=== PATIENT | female | born 1980 | race Caucasian/White ===

== ENCOUNTER → 2018-01-09 11:05 | Outpatient (CLI) | payer OTHER, SELFPAY ==
[2018-01-09 12:06] LABS: Rheumatoid Factor < 10.0 IU/mL (<15)
[2018-01-10 16:09] LABS: Albumin 3.8 g/dL (2.9-4.4); Albumin, Ur 6.7 % (.); Alpha-1-Globulin, Ur 6.5 % (.); Alpha-1-Globulins 0.2 g/dL (0.0-0.4); Alpha-2-Globulins 0.5 g/dL (0.4-1.0); Alpha-2-Globulins, Ur 16.2 % (.); Beta Globulin, Ur 39.8 % (.); Gamma Globulin 0.9 g/dL (0.4-1.8); Gamma Globulin, Ur 30.7 % (.); Immunoglobulin A 122 mg/dL (87-352); Immunoglobulin G 748 mg/dL (700-1600); Immunoglobulin M 245 mg/dL (26-217); M-Spike, Ur % Not Observed % (Not Observed); PROEL- TOTAL PROTEIN 6.3 g/dL (6.0-8.5); SJOGREN'S Anti-SS-A test < 0.2 AI (0.0-0.9); SJOGREN'S Anti-SS-B test < 0.2 AI (0.0-0.9); Total Protein, Ur 4.1 mg/dL (Not Estab.)
[2018-01-11 09:38] LABS: ANTINUCLEAR ANTIBODIES DIRECT Negative (Negative)
[2018-01-16 11:48] LABS: Creatinine, Urine 0.18 g/L (0.30-3.00)
== END ==
LOC: LAB 11:06
PROVIDERS: Family Provider Family Medicine; PCP Family Medicine; Visit Provider Psychiatry & Neurology Neurology
DX: G62.9 Polyneuropathy, unspecified (principal)
CPT/HCPCS: 36415; 82175; 82570; 82784; 83655; 83825; 84165; 84166; 86038; 86235; 86256; 86334; 86335; 86431

== ENCOUNTER → 2018-03-13 07:54 | Outpatient (CLI) | payer OTHER, SELFPAY ==
--- NOTE | 2018-03-13 10:38 | NEURO ---
NCS and/or EMG Patient Report Ordering Doctor: Shabnam Bay DATE OF SERVICE: 03/13/18 This is a bilateral lower extremity nerve conduction study and a right lower extremity EMG performed on this 37-year-old female who states that she has prediabetes with a hemoglobin A1c of 6.0, Duplin's disease, Raynaud's phenomenon, headaches and hypothyroidism, who is experienced burning and numbness in her feet for 1 year. Medications include steroids, Florinef, Synthroid, Seroquel, Topamax, Elavil and Wellbutrin. Bilateral lower extremity sensory and motor nerve conduction studies are performed. The sural sensory responses bilaterally are normal. The superficial peroneal sensory responses bilaterally are normal. The medial plantar responses bilaterally are preserved although amplitudes are somewhat diminished. Right common peroneal motor response is not obtainable, the left common peroneal motor response demonstrates reduced amplitude and prolonged latencies. The bilateral tibial motor conduction velocities are slowed. H reflex responses bilaterally are reduced. Right lower extremity needle electromyography was performed. Muscles evaluated included the tensor digitorum brevis, abductor hallucis, medial gastrocnemius, anterior tibialis, vastus lateralis, and vastus medialis. Peripheral muscles demonstrated large motor units, these abnormalities resolve more proximal muscles consistent with length dependent pattern. Impression: This is an abnormal nerve conduction study and EMG consistent with length dependent polyneuropathy.
== END ==
LOC: PSN 07:54
PROVIDERS: Family Provider Family Medicine; PCP Family Medicine; Visit Provider Psychiatry & Neurology Neurology
DX: R20.0 Anesthesia of skin (principal); R20.2 Paresthesia of skin; G62.9 Polyneuropathy, unspecified
CPT/HCPCS: 95886; 95913

== ENCOUNTER → 2018-04-10 07:27 | Outpatient (CLI) | payer OTHER, SELFPAY ==
--- NOTE | 2018-04-10 10:34 | NEURO ---
NCS and/or EMG Patient Report Ordering Doctor: Shabnam Bay DATE OF SERVICE: 04/10/18 The bilateral upper extremity nerve conduction study and a upper extremity EMG performed on this 37-year-old female with a history of neuropathy in her lower extremities by previous testing as well as a history of Luquillo's disease. Bilateral upper extremity sensory and motor nerve conduction studies are performed. There is reduction of the left ulnar motor amplitude across the elbow with prolongation of latencies but intact conduction velocity. On the right side the ulnar motor and sensory responses are normal. There is very mild prolongation of the median motor distal latencies with preservation of amplitude and conduction velocities. The median sensory, and radial sensory responses are normal. The median and ulnar F-wave latencies are bilaterally preserved. Right upper extremity needle electromyography is performed. Muscles evaluated included the first dorsal interosseous, abductor pollicis brevis, brachioradialis, biceps, triceps and deltoid muscles. The first dorsal interosseous muscle did show increase insertional activity, all other C8 muscles were normal. All other muscles demonstrated normal insertional activity with absence of pathologic spontaneous activity. Motor unit potential recruitment pattern and amplitude was normal in all other muscles tested. Impression: 1. Ulnar neuropathy across the left elbow, moderate. 2. 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
== END ==
LOC: PSN 07:27
PROVIDERS: Family Provider Family Medicine; PCP Family Medicine; Visit Provider Psychiatry & Neurology Neurology
DX: R20.0 Anesthesia of skin (principal); R20.2 Paresthesia of skin
CPT/HCPCS: 95886; 95913

== ENCOUNTER → 2018-05-30 13:28 | Outpatient (CLI) | payer OTHER, SELFPAY ==
[2018-05-30 16:55] LABS: Anion Gap 10 (5-15); BUN 12 mg/dL (7-18); Calcium,Total 8.5 mg/dL (8.5-10.1); Chloride 111 mmol/L (98-107); EST Glomerular Filtration Rate 67 mL/min (>60); Est Glom Filt Rate - Afr Amer 81 mL/min (>60); Glucose 86 mg/dL (74-106); Potassium 3.7 mmol/L (3.5-5.1); Sodium Level 142 mmol/L (136-145); T4 Free Direct 1.07 ng/dL (0.76-1.46); Thyroid Stim Hormone (TSH) 0.29 uIU/mL (0.358-3.74)
[2018-05-30 22:54] LABS: Vitamin B12 374 pg/mL (211-911)
== END ==
PROVIDERS: Family Provider Family Medicine; PCP Family Medicine; Visit Provider Family Medicine
DX: E23.0 Hypopituitarism (principal); E53.8 Deficiency of other specified B group vitamins
CPT/HCPCS: 36415; 80048; 82607; 83921; 84439; 84443

== ENCOUNTER → 2018-07-09 11:03 | Outpatient (CLI) | payer OTHER, SELFPAY ==
[2018-07-09 11:15] LABS: Mucous, Urine 0 SEEN /hpf (<or=2+); Red Blood Cells-Urine 0 SEEN /hpf (0-5); White Blood Cells 0 SEEN /hpf (0-5)
[2018-07-09 15:31] LABS: Absolute Lymphocyte Count 1.33 X10^3/ul (0.83-4.51); Absolute Neutrophil Count 1.6 X10^3/uL (2.0-7.7); Basophil# 0.04 X10^3/uL; Basophil% 1.1 % (0-1); Eosinophil# 0.01 X10^3/uL; Eosinophils% 0.3 % (0-5); Hematocrit 37.4 % (37-47); Hemoglobin 11.8 g/dl (12.0-15.0); Lymphocyte # 1.33 X10^3/ul (4.0); Lymphocyte % 35.4 % (19-41); Mean Corp Hgb Conc 31.6 g/gl (32-36); Mean Corpuscular Hgb 26.4 pg (27.0-32.0); Mean Corpuscular Volume 83.7 fL (81-99); Mean Platelet Vol. 10.1 fl (6.2-12.0); Monocyte# 0.77 X10^3/uL; Monocyte% 20.5 % (0-10); Neutrophil # 1.61 X10^3/uL (2.7-7.7); Neutrophil % 42.7 % (47-70); Platelet Count 372 K/mm3 (150-450); RBC Distribution Width CV 15.1 % (11.6-14.6); RBC Distribution Width SD 46.3 fl (35.1-43.9); Red Blood Count 4.47 M/mm3 (4.2-5.4); White Blood Count 3.8 K/mm3 (4.4-11.0)
[2018-07-09 15:39] LABS: ALB/GLOB Ratio 1.1 RATIO (0.9-2.4); AST(SGOT) 9 U/L (15-37); Alanine Aminotransfer ALT/SGPT 17 U/L (13-56); Albumin, Serum 3.4 g/dL (3.2-5.0); Alkaline Phosphatase 68 U/L (45-117); Anion Gap 12 (5-15); BUN 12 mg/dL (7-18); BUN/Creat Ratio 12.5 RATIO (10-20); Calcium,Total 8.1 mg/dL (8.5-10.1); Chloride 110 mmol/L (98-107); Color, Urine Yellow (Yellow); Creatinine, Serum 0.96 mg/dL (0.55-1.02); EST Glomerular Filtration Rate 70 mL/min (>60); Est Glom Filt Rate - Afr Amer 85 mL/min (>60); Glucose 98 mg/dL (74-106); Glucose, Dipstick Normal (Normal); Ketone-Dipstick Negative (Negative); Leukocyte Esterase-Dipstick Negative /ul (Negative); Nitrite-Dipstick Negative (Negative); Occult Blood-Urine Negative /ul (Negative); Potassium 3.9 mmol/L (3.5-5.1); Protein, Total 6.4 g/dL (6.4-8.2); Protein-Dipstick Negative (Negative); Sodium Level 142 mmol/L (136-145); Specific Gravity, Urine 1.015 (1.002-1.030); Urine Bilirubin Dipstick Negative (Negative); Urine Urobilinogen Normal (Normal)
[2018-07-09 15:48] LABS: POSITIVE COUNT NO; POSITIVE DIFFERENTIAL NO; POSITIVE MORPHOLOGY NO
[2018-07-09 15:50] LABS: Erythrocyte Sedimentation Rate 4 mm/hr (0-20)
[2018-07-09 15:56] LABS: Urine Clarity Clear (Clear)
[2018-07-09 16:00] LABS: Bacteria 1+ /hpf (None Seen); Squamous Epithelial Cells - UA 5-10 SEEN /hpf (5-10)
[2018-07-17 16:08] LABS: Complement C3 92 mg/dL (82-167); Cytoplasmic Ab (C-ANCA) <1:20 titer (Neg:<1:20); HEPATITIS B SURFACE AG Negative (Negative); Thyroid Peroxidase AB 116 IU/mL (0-34)
[2018-07-18 12:26] LABS: Anti-Thyroglobulin AB > 2250.0 IU/mL (0.0-0.9); CCP IgG Antibodies 5 units (0-19); Hep C Antibodies 0.1 s/co ratio (0.0-0.9); Hepatitis B Core AB IgM Negative (Negative); Thyroglobulin RIA 4.2 ng/mL (.)
== END ==
PROVIDERS: Family Provider Family Medicine; PCP Family Medicine
DX: R76.8 Other specified abnormal immunological findings in serum (principal)
CPT/HCPCS: 36415; 80053; 81001; 84432; 85025; 85652; 86160; 86200; 86256; 86376; 86705; 86800; 86803; 87340

== ENCOUNTER → 2018-08-29 14:32 | Outpatient (CLI) | payer OTHER, SELFPAY ==
[2018-08-29 16:10] LABS: Thyroid Stim Hormone (TSH) 0.16 uIU/mL (0.358-3.74)
== END ==
PROVIDERS: Family Provider Family Medicine; PCP Family Medicine
DX: E27.1 Primary adrenocortical insufficiency (principal)
CPT/HCPCS: 36415; 84443

== ENCOUNTER → 2019-01-03 14:44 | Outpatient (CLI) | payer OTHER, SELFPAY ==
[2018-11-26 10:58] VITALS: BMI 38.3
[2019-01-03 18:22] LABS: Anion Gap 8 (5-15); BUN 14 mg/dL (7-18); Calcium,Total 8.7 mg/dL (8.5-10.1); Chloride 111 mmol/L (98-107); EST Glomerular Filtration Rate 66 mL/min (>60); Est Glom Filt Rate - Afr Amer 80 mL/min (>60); Glucose 126 mg/dL (74-106); Potassium 4.1 mmol/L (3.5-5.1); Sodium Level 143 mmol/L (136-145); T4 Free Direct 0.89 ng/dL (0.76-1.46); Thyroid Stim Hormone (TSH) 2.54 uIU/mL (0.358-3.74)
== END ==
PROVIDERS: Family Provider Family Medicine; PCP Family Medicine
DX: E27.1 Primary adrenocortical insufficiency (principal); E03.8 Other specified hypothyroidism; E06.3 Autoimmune thyroiditis
CPT/HCPCS: 36415; 80048; 84439; 84443

== ENCOUNTER → 2019-03-05 09:30 | Outpatient (CLI) | payer OTHER, SELFPAY ==
[2018-11-26 10:58] VITALS: BMI 38.3
[2019-03-05 12:20] LABS: Absolute Lymphocyte Count 1.52 X10^3/ul (0.83-4.51); Basophil# 0.04 X10^3/uL; Basophil% 1.3 % (0-1); Eosinophil# 0.02 X10^3/uL; Eosinophils% 0.7 % (0-5); Hematocrit 40.6 % (37-47); Lymphocyte # 1.52 X10^3/ul (4.0); Lymphocyte % 50.8 % (19-41); Mean Corpuscular Hgb 27.9 pg (27.0-32.0); Mean Corpuscular Volume 87.1 fL (81-99); Mean Platelet Vol. 10.5 fl (6.2-12.0); Monocyte# 0.37 X10^3/uL; Monocyte% 12.4 % (0-10); Neutrophil # 1.04 X10^3/uL (2.7-7.7); Neutrophil % 34.8 % (47-70); Platelet Count 300 K/mm3 (150-450); RBC Distribution Width CV 14.6 % (11.6-14.6); RBC Distribution Width SD 46.5 fl (35.1-43.9); Red Blood Count 4.66 M/mm3 (4.2-5.4)
[2019-03-05 12:21] LABS: POSITIVE COUNT NO; POSITIVE DIFFERENTIAL NO; POSITIVE MORPHOLOGY NO
[2019-03-05 12:31] LABS: ALB/GLOB Ratio 1.2 RATIO (0.9-2.4); AST(SGOT) 15 U/L (15-37); Alanine Aminotransfer ALT/SGPT 16 U/L (13-56); Albumin, Serum 3.6 g/dL (3.2-5.0); Alkaline Phosphatase 54 U/L (45-117); Anion Gap 9 (5-15); BUN 8 mg/dL (7-18); Calcium,Total 8.6 mg/dL (8.5-10.1); Chloride 107 mmol/L (98-107); Creatinine, Serum 0.89 mg/dL (0.55-1.02); EST Glomerular Filtration Rate 76 mL/min (>60); Est Glom Filt Rate - Afr Amer 92 mL/min (>60); Globulin 2.9 g/dL (2.2-4.2); Glucose 86 mg/dL (74-106); Potassium 3.8 mmol/L (3.5-5.1); Protein, Total 6.5 g/dL (6.4-8.2); Sodium Level 142 mmol/L (136-145)
[2019-03-05 12:34] LABS: Hemoglobin A1c 5.3 % (4.2-6.3)
[2019-03-05 12:38] LABS: Vitamin B12 1018 pg/mL (211-911)
[2019-03-05 12:44] LABS: Valproic Acid (Depakene) Level 57 ug/mL (50-100)
== END ==
PROVIDERS: Family Provider Family Medicine; PCP Family Medicine; Visit Provider Family Medicine
DX: F31.9 Bipolar disorder, unspecified (principal); E53.8 Deficiency of other specified B group vitamins; E03.9 Hypothyroidism, unspecified; R73.01 Impaired fasting glucose; Z79.899 Other long term (current) drug therapy
CPT/HCPCS: 36415; 80053; 80164; 82607; 83036; 85025

== ENCOUNTER → 2019-05-15 11:01 | Outpatient (CLI) | payer OTHER, SELFPAY ==
[2018-11-26 10:58] VITALS: BMI 38.3
[2019-05-15 13:35] LABS: hCG Titer Quant., Serum 51761 mIU/mL (1-3)
== END ==
PROVIDERS: Family Provider Family Medicine; PCP Family Medicine; Visit Provider Family Medicine
DX: N91.2 Amenorrhea, unspecified (principal)
CPT/HCPCS: 36415; 84702

== ENCOUNTER → 2019-05-27 | Outpatient (CLI) | payer OTHER, SELFPAY ==
[2018-11-26 10:58] VITALS: BMI 38.3
[2019-05-27 18:15] LABS: Anion Gap 6 (5-15); BUN 9 mg/dL (7-18); BUN/Creat Ratio 11.6 RATIO (10-20); Calcium,Total 9.2 mg/dL (8.5-10.1); Chloride 105 mmol/L (98-107); Creatinine, Serum 0.78 mg/dL (0.55-1.02); EST Glomerular Filtration Rate 88 mL/min (>60); Est Glom Filt Rate - Afr Amer 107 mL/min (>60); Glucose 104 mg/dL (74-106); Potassium 4.5 mmol/L (3.5-5.1); Sodium Level 134 mmol/L (136-145); T4 Free Direct 1.01 ng/dL (0.76-1.46); Thyroid Stim Hormone (TSH) 7.54 uIU/mL (0.358-3.74)
== END | disposition home or self-care (01) ==
LOC: BFHLAB 14:38
PROVIDERS: PCP Family Medicine
DX: E27.1 Primary adrenocortical insufficiency (principal); E03.9 Hypothyroidism, unspecified
CPT/HCPCS: 36415; 80048; 84439; 84443

== ENCOUNTER 2019-12-23 19:31 | Inpatient (IN) | payer OTHER, SELFPAY ==
[2018-11-26 10:58] VITALS: BMI 38.3
--- NOTE | 2019-12-23 19:54 | PCM.HP.OB ---
- Problem List (1) Advanced maternal age (AMA) in Status: Acute (2) History of bipolar disorder Status: Acute (3) Encounter for induction of labor Status: Acute (4) Hypothyroidism Status: Chronic (5) Tobacco use affecting , antepartum Status: Acute (6) Tobacco use complicating Status: Acute (7) Asthma Status: Acute (8) Warm reactive antibody Status: Acute History Date of Admission: 03/29/14 Final SUNITHA: 12/30/19 Gestational age: 39 Weeks and 0 Days History of this : This is a 39 year-old, G [2], P [1001], at 39 weeks gestational age by first trimester ultrasound. complicated by hypothyroidism, ag's disease, tobacco use in , history of bipolar disorder, antibody screen positive for warm autoantibody (warm panagglutinin) and advanced maternal age. 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 Primary adrenal insufficiency E27.1 Raynauds disease I73.00 Tension headache G44.209 Vitamin D deficiency E55.9 pre diabetic Surgical History: Surgical History (Last Updated 11/26/18 @ 11:03 by Lyndsey Mooney) H/O rhinoplasty Z98.890 Hx laparoscopic cholecystectomy Z90.49 Allergies vortioxetine [From Brintellix] Allergy (Mild, Verified 11/26/18 10:58) Other nickel [Nickel] Adverse Reaction (Verified 11/26/18 10:58) Rash Penicillins Adverse Reaction (Verified 11/26/18 10:58) Abd cramps/diarrhea Home Medications: Home Medications albuterol sulfate 90 mcg/actuation aerosol inhaler 1 puff INHALATION Q6H PRN 11/26/18 bupropion HCl 150 mg tablet,12 hr sustained-release 150 mg PO DAILY 11/26/18 cholecalciferol (vitamin D3) 125 mcg (5,000 unit) capsule 5,000 unit PO DAILY 11/26/18 divalproex 500 mg tablet,extended release 24 hr 500 mg PO DAILY 11/26/18 fludrocortisone 0.1 mg tablet 0.1 mg PO DAILY 11/26/18 hydrocortisone 5 mg tablet 5 mg PO TID 11/26/18 levothyroxine 200 mcg tablet 200 mcg PO DAILY 11/26/18 pantoprazole 40 mg tablet,delayed release 40 mg PO DAILY 11/26/18 quetiapine 300 mg tablet 300 mg PO BID 11/26/18 topiramate 100 mg tablet 100 mg PO BID 11/26/18 vitamin [id number] B1 1,000 mcg-100 mg/mL injection solution ml IM 11/26/18 Smoking Status: Former smoker Alcohol: None Number of Fetus(es): 1 NST - FHR Rate Baby A Baseline: 125 Variability:: Moderate Accelerations:: 15 x 15 Decelerations:: None FHR Category:: Category I Uterine Activity:: Irregular History Past Pregnancies: Past Pregnancies Delivery Date Name GA/ Weeks Outcome Route Wt Sex Labor Length Anesthesia Delivery Location Provider FOB Labs: HIV negative RPR negative HCV negative Rubella Immune HbsAG negative O positive with warm autoantibody (warm panagglutinin) GBS negative GC/CT negative 1hr GCT abnormal, 3hr GTT normal with one elevated level Expected Delivery Method: Spontaneous Vaginal Review of Systems Constitutional: Denies: Chills, Fever, Weight Change Eyes: Denies: Blurred vision Cardiovascular: Denies: Chest Pain, Palpitations Respiratory: Denies: Cough, Shortness of breath at rest, Sputum production Gastrointestinal: Denies: Abdominal Pain, Nausea, Vomiting Genitourinary: Denies: Dysuria Skin: Denies: Rash, Wounds Neurological: Denies: Numbness, Tingling, Focal weakness Psychiatric: Denies: Anxiety, Depression, Homicidal Ideations, Suicidal Ideations Physical Exam General: Alert, Oriented x3, Cooperative HEENT: Atraumatic, Normocephalic Cardiovascular: Regular rate, Regular Rhythm, No murmurs Lungs: Clear to auscultation, Normal air movement, No rhonchi, No wheeze Abdomen: Bowel Sounds Present, Soft, Non Tender, Gravid Extremities:: No edema Neurological: Deep Tendon Reflexes 2+/4 and Symmetrical. 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 30ml NS instilled. Station: -3 Effacement (%): 50 Assessment/Plan All Active Problems (Last Updated 11/26/18 @ 11:03 by Lyndsey Mooney) Advanced maternal age (AMA) in (Acute) History of bipolar disorder (Acute) Encounter for induction of labor (Acute) Tobacco use affecting , antepartum (Acute) Tobacco use complicating (Acute) Asthma (Acute) Warm reactive antibody (Acute) Acute adrenal crisis (Acute) Dehydration (Acute) Hypotension (Acute) This is a 39 year-old, G [2], P [1001], at 39 weeks gestational age for Induction of labor Advanced Maternal Age Tobacco Use 1) Admit to L&D. Routine labs 2) IV 3) Eng for cervical ripening and will then start Pitocin per protocol 4) Called blood bank due to warm autoantiody (warm panagglutinin) If positive type and screen, will need to notify [facility] [employer] for cross match if needed. If hgb below 10, will order cross match. 5) collaborative physician, notified of patient status and admission. 6) Will need 100 mg hydrocortisone every 8h IV per eddy current inspector. Verified with this evening.
[2019-12-23] MEDS: 0.9% Normal Saline Single 100 ML IV.SOLN. IY (20:54)
[2019-12-23 21:00] VITALS: BMI 34.7
[2019-12-23] MEDS: Lactated Ringers 1,000 ML 50 ML IV (21:12)
[2019-12-23 21:22] LABS: Absolute Lymphocyte Count 2.35 X10^3/uL (0.83-4.51); Basophil# 0.04 X10^3/uL; Basophil% 0.4 % (0-1); Eosinophil# 0.01 X10^3/uL; Eosinophils% 0.1 % (0-5); Hematocrit 45.8 % (37-47); Hemoglobin 16.6 g/dL (12.0-15.0); Lymphocyte # 2.35 X10^3/ul (4.0); Lymphocyte % 25.2 % (19-41); Mean Corp Hgb Conc 36.2 g/dL (32-36); Mean Corpuscular Hgb 33.5 pg (27.0-32.0); Mean Corpuscular Volume 92.5 fL (81-99); Mean Platelet Vol. 10.3 fl (6.2-12.0); Monocyte# 0.87 X10^3/uL; Monocyte% 9.3 % (0-10); NRBC Flagged by Analyzer 0 % (0-5); Neutrophil # 6.03 X10^3/uL (2.7-7.7); Neutrophil % 64.6 % (47-70); Platelet Count 267 K/mm3 (150-450); RBC Distribution Width CV 12.8 % (11.6-14.6); RBC Distribution Width SD 42.7 fl (35.1-43.9); Red Blood Count 4.95 M/mm3 (4.2-5.4); White Blood Count 9.3 K/mm3 (4.4-11.0)
[2019-12-23] MEDS: Hydrocortisone Sod Succinate 100 MG/2 ML Vial IV (23:53)
[2019-12-24] VITALS (14 sets, daily range): BP systolic 93–109; BP diastolic 51–67; PULSE 93–110; RESP 14–22; TEMP 36.6–37.5; O2SAT 97–100
[2019-12-24] MEDS: Mag Hydrox/Al Hydrox/Simeth 30 ML UDC PO (00:17)
[2019-12-24] MEDS: Oxytocin 30 units/NS 500 ml 30 UNITS/500 ML IV.SOLN IV (01:17)
[2019-12-24] MEDS: fentaNYL 100 MCG/2 ML Ampul IV (02:12)
[2019-12-24] MEDS: Lactated Ringers 500 ML 999 ML IV ×2 (03:42→10:22)
[2019-12-24] MEDS: fentaNYL-bupivacaine (epidural) 100 ML BAG EPIDURAL ×2 (04:16→08:58)
[2019-12-24] MEDS: Hydrocortisone Sod Succinate 100 MG/2 ML Vial IV ×2 (07:44→15:35)
[2019-12-24] MEDS: Lactated Ringers 1,000 ML 200 ML IV ×2 (07:44→12:17)
[2019-12-24] MEDS: Amnioinfusion- 0.9% NS 1,000 ML IV.SOLN. INTRA-UTER (13:17)
[2019-12-24] MEDS: Sodium Citrate/Citric Acid 30 ML UDC PO (15:36)
--- NOTE | 2019-12-24 16:37 | OP.PCM_ITS ---
Delivery Classification: ABDELRAHMAN Final SUNITHA: 12/30/19 Gestational age: 39 Weeks and 1 Days folder taper operator: Shakir Moreau Type of Anesthesia:: Spinal Special Medications: none Implants Used: none Date of Procedure: 12/24/19 Pre-Operative Diagnosis: arrest of dilation and descent, persistent category 2 FHTs remote from delivery, intolerance of labor Post-Operative Diagnosis: same + dystocia caused by lower uterine segment fibroid Description of Procedure: The patient was taken to the operating room. She was prepped and draped in the dorsal supine position with a leftward tilt. A Pfannenstiel skin incision was made approximately 2 cm above the symphysis pubis and carried through to underlying layer fascia with the scalpel. The fascia was incised incised in the midline and extended laterally with the Rosario scissors. The fascia was dissected off the rectus muscles with blunt and sharp dissection. The rectus muscles were in the midline and the peritoneum was entered bluntly. The peritoneal incision was stretched and the bladder blade was placed. The lower uterine segment was not developed at all, and was still somewhat thick. There was a lower uterine segment grade that was palpated adjacent to the head behind the symphysis pubis. The uterine incision was made in a low transverse fashion with the scalpel and extended superiorly and inferiorly with blunt dissection. The amniotic membranes were ruptured bluntly and clear amniotic fluid returned. Some difficulty, I was able to place a hand down in the pelvis under the vertex and break the suction. Head was very asynclitic and ROP. the infant's head was brought to the incision in the flexed position and delivered without difficulty. The remainder of the was delivered with gentle traction and fundal pressure in the standard fashion. The mouth and nares were bulb suctioned. The cord was clamped and cut as the was stimulated. Cord clamping was not delayed because the infant had good tone but was not immediately vigorous. The infant was handed off to the waiting nursing staff. The placenta was delivered with fundal massage and gentle traction in the standard fashion. The uterus was exteriorized and cleared of all clots and debris. There is a cervical extension on the left side. This was oversewn with #1 Vicryl suture. The uterine incision was closed with #1 Vicryl in a running locked fashion. A second layer of the same suture was used in an imbricating fashion. Several [id number] sutures were needed in the midline in a sinus to obtain hemostasis. The incision was examined and was found to be hemostatic. The lower uterine segment fibroid was to the right of the incision at the lower apex of the incision. The uterus was placed back into the peritoneal cavity and hemostasis was again confirmed. Kerri was placed over the lower uterine segment. The front and back of the ligaments were examined to ensure there were no hematomas before the uterus was placed back in the peritoneal cavity. The rectus muscles were examined and any bleeding was Bovie cauterized. The parietal peritoneum and rectus muscles were closed en bloc with an 0 Vicryl running suture. The surgical teams outer gloves were then changed. The rectus fascia was examined and any bleeding was Bovie cauterized and the rectus fascia was closed with 0 PDS suture in a running standard fashion. The subcutaneous tissue was examining and any bleeding was Bovie cauterized. The subcutaneous tissue was reapproximated with 3-0 Vicryl suture. The skin was closed in a subcuticular fashion by the SOLAR FABRICATION TECHNICIAN with me present in the labor and delivery suite. I performed the remainder of the procedure with assistance. All sponge, lap, and needle counts were correct. The patient was taken to her room for recovery in a stable condition. I would not recommend a trial of labor, the fibroid will likely cause a dystocia again in the future. Amniotic Membrane Rupture Type: Artificial Amniotic Fluid Description: Clear Placenta Disposition: [facility] Specimen(s) sent to pathology: none Drain: Chambers to straight drain Fluids Replaced: 600 Cord Entanglement: Around neck x 1, loose Nuchal Cord Compression: Without compression Cord Vessel Description: 3 Vessels Esitmated Blood Loss (ml): 1000 Infant Gender: Male Delayed cord clamping: No Antibiotic Given: Clindamycin 600mg IV x1 and Gentamicin 1.5mg/kg IV x1
[2019-12-24] MEDS: Lactated Ringers 1,000 ML 100 ML IV (16:50)
[2019-12-24] MEDS: Oxytocin 30 units/NS 500 ml 30 UNITS/500 ML IV.SOLN 167 UNITS IV (16:55)
[2019-12-24] MEDS: Senna/Docusate Sodium 1 Tablet PO (21:38)
[2019-12-24] MEDS: QUEtiapine 100 MG Tablet 300 MG PO (21:38)
[2019-12-24] MEDS: Ketorolac 30 MG/ML Syringe IV (21:39)
[2019-12-25] VITALS (14 sets, daily range): BP systolic 94–109; BP diastolic 57–61; PULSE 97–113; RESP 14–18; TEMP 36.4–37.1; O2SAT 96–100
[2019-12-25] MEDS: Hydrocortisone Sod Succinate 100 MG/2 ML Vial IV (00:48)
[2019-12-25] MEDS: Ketorolac 30 MG/ML Syringe IV ×4 (03:56→22:12)
[2019-12-25] MEDS: Enoxaparin 40 MG/0.4 ML Syringe SC (03:57)
[2019-12-25] MEDS: 0.9% Saline Lock 10 ML Syringe IV ×4 (03:57→16:24)
[2019-12-25 04:11] LABS: Hematocrit 36.2 % (37-47); Hemoglobin 12.7 g/dL (12.0-15.0); Mean Corp Hgb Conc 35.1 g/dL (32-36); Mean Corpuscular Hgb 33.4 pg (27.0-32.0); Mean Corpuscular Volume 95.3 fL (81-99); Mean Platelet Vol. 10.3 fl (6.2-12.0); Platelet Count 222 K/mm3 (150-450); RBC Distribution Width CV 13.2 % (11.6-14.6); RBC Distribution Width SD 44.2 fl (35.1-43.9); White Blood Count 17.6 K/mm3 (4.4-11.0)
[2019-12-25] MEDS: Levothyroxine 100 MCG Tablet 200 MCG PO (06:28)
[2019-12-25] MEDS: Hydrocortisone Sod Succinate 100 MG/2 ML Vial 25 MG IV ×3 (08:13→22:12)
[2019-12-25] MEDS: Fludrocortisone Acetate 0.1 MG Tablet PO ×3 (08:15→18:26)
--- NOTE | 2019-12-25 08:36 | PN.OBGYN_ITS ---
Patient Problems: Active and Suspected Problems (Last Updated 11/26/18 @ 11:03 by Lyndsey Mooney) Advanced maternal age (AMA) in (Acute) History of bipolar disorder (Acute) Encounter for induction of labor (Acute) Tobacco use affecting , antepartum (Acute) Tobacco use complicating (Acute) Asthma (Acute) Warm reactive antibody (Acute) Subjective: Pain well controlled. Average lochia. Tolerating regular diet. - Physical Exam Vitals/I&O's: Vital Signs Temp Pulse Resp BP Pulse Ox 98.4 F 98 16 94/57 L 97 12/25/19 08:01 12/25/19 08:01 12/25/19 08:01 12/25/19 08:01 12/25/19 08:01 Oxygen Delivery Method Room Air Weight: 103.419 kg Body Mass Index (BMI) 34.7 Finger Stick Blood Glucose 71 Intake and Output for Last 24 Hours 12/23/19 12/24/19 12/25/19 23:59 23:59 23:59 Intake Total 6112.03 / 6112.03 808.33 / 808.33 Output Total 950 / 950 150 / 150 Balance 5162.03 / 5162.03 658.33 / 658.33 General: Alert Abdomen: Soft, Distended - moderately, softly, Tender - appropriately Extremities: Edema - 1+ Skin: Incision - bandage is clean, dry and intact Laboratory Results 12/25/19 04:05: WBC 17.6 H, RBC 3.80 L, Hgb 12.7, Hct 36.2 L, MCV 95.3, MCH 33.4 H, MCHC 35.1, RDW Std Deviation 44.2 H, RDW Coeff of Denita 13.2, Plt Count 222, MPV 10.3 Current Medications Acetaminophen (Tylenol) 1,000 mg PO Q8H PRN PRN Reason: Pain Score 1-3/10 Albuterol Sulfate (Ventolin Aerosols) 2.5 mg INHALATION Q4H PRN PRN Reason: ASTHMA Bisacodyl (Dulcolax) 10 mg RECTAL UD PRN PRN Reason: If no BM Diphenhydramine HCl (Benadryl) 25 mg PO Q6H PRN PRN PRN Reason: ITCHING Stop: 02/12/20 18:38 Enoxaparin Sodium (Lovenox) 40 mg SC DAILY [facility] Last Admin: 12/25/19 03:57 Dose: 40 mg Documented by: Fludrocortisone Acetate (Florinef) 0.1 mg PO DAILY@0800 [facility] Last Admin: 12/25/19 08:15 Dose: 0.1 mg Documented by: Hydrocortisone (Hytone) 1 applic TOPICAL TID PRN PRN; Protocol PRN Reason: Discomfort Hydrocortisone Sodium Succinate (Solu-Cortef) 25 mg IV Q8 [facility] Stop: 12/25/19 22:01 Last Admin: 12/25/19 08:13 Dose: 25 mg Documented by: Naloxone HCl 4 mg/ Dextrose 504 mls @ 0 mls/hr IV .Q0M PRN; Protocol PRN Reason: Respiratory depression Ketorolac Tromethamine (Toradol (Bkc)) 30 mg IV Q6H [facility] Stop: 12/26/19 16:01 Last Admin: 12/25/19 03:56 Dose: 30 mg Documented by: Lamotrigine (Lamictal) 300 mg PO DAILY [facility] Levothyroxine Sodium (Synthroid) 200 mcg PO DAILY@0600 [facility] Last Admin: 12/25/19 06:28 Dose: 200 mcg Documented by: Methylergonovine Maleate (Methergine) 0.2 mg IM X1 PRN PRN Reason: Uterine Atony Naloxone HCl (Narcan) 0.02 mg IV Q1M PRN PRN Reason: RR <10 and pt unresponsive Ondansetron HCl (Zofran) 4 mg IV Q4H PRN PRN PRN Reason: Nausea Oxycodone HCl (Oxyir) 5 - 10 mg PO Q4H PRN PRN PRN Reason: Pain Score 4-10/10 Prochlorperazine Edisylate (Compazine Iv) 10 mg IV Q6H PRN PRN PRN Reason: NAUSEA Quetiapine Fumarate (Seroquel) 300 mg PO BID [facility] Last Admin: 12/24/19 21:38 Dose: 300 mg Documented by: Senna/Docusate Sodium (Senokot-S, Susan-Colace) 0 tablet PO DAILY PRN PRN Reason: Constipation Last Admin: 12/24/19 21:38 Dose: 2 tablet Documented by: Simethicone (Mylicon) 80 mg PO PCHS PRN PRN Reason: Indigestion/stomach pain Sodium Chloride () 5 - 15 ml IV UD PRN PRN Reason: SALINE FLUSH Last Admin: 12/25/19 08:15 Dose: 10 ml Documented by: Medical Necessity - Tobacco Use Smoking Status: Current every day smoker Assessment/Plan All Active Problems (Last Updated 11/26/18 @ 11:03 by Lyndsey Mooney) Advanced maternal age (AMA) in (Acute) History of bipolar disorder (Acute) Encounter for induction of labor (Acute) Tobacco use affecting , antepartum (Acute) Tobacco use complicating (Acute) Asthma (Acute) Warm reactive antibody (Acute) Acute adrenal crisis (Acute) Dehydration (Acute) Hypotension (Acute) Postoperative day #1 status post primary section. Doing well. Routine care. is bottlefeeding and doing well.
[2019-12-25] MEDS: Senna/Docusate Sodium 1 Tablet PO (10:09)
[2019-12-25] MEDS: lamoTRIgine 100 MG Tablet 300 MG PO (10:09)
[2019-12-25] MEDS: Acetaminophen 500 MG Tablet 1000 MG PO (12:51)
[2019-12-25] MEDS: QUEtiapine 100 MG Tablet 300 MG PO (22:22)
[2019-12-26 01:00] VITALS: BP 106/60; PULSE 90; RESP 16; TEMP 36.6
[2019-12-26] MEDS: 0.9% Saline Lock 10 ML Syringe IV ×2 (04:00→10:14)
[2019-12-26] MEDS: Ketorolac 30 MG/ML Syringe IV ×2 (04:00→10:13)
[2019-12-26] MEDS: Levothyroxine 100 MCG Tablet 200 MCG PO (05:33)
[2019-12-26] MEDS: oxyCODONE 5 MG Tablet PO (05:38)
[2019-12-26] MEDS: Senna/Docusate Sodium 1 Tablet PO (08:13)
[2019-12-26] MEDS: Fludrocortisone Acetate 0.1 MG Tablet PO (08:15)
[2019-12-26 08:30] VITALS: BP 123/66; PULSE 95; RESP 16; TEMP 37; O2SAT 99
--- NOTE | 2019-12-26 09:31 | PN.OBGYN_ITS ---
Patient Problems: Active and Suspected Problems (Last Updated 11/26/18 @ 11:03 by Lyndsey Mooney) Advanced maternal age (AMA) in (Acute) History of bipolar disorder (Acute) Encounter for induction of labor (Acute) Tobacco use affecting , antepartum (Acute) Tobacco use complicating (Acute) Asthma (Acute) Warm reactive antibody (Acute) Subjective: Pain well controlled. Average lochia. Positive flatus but no bowel movement. Tolerating regular diet. - Physical Exam Vitals/I&O's: Vital Signs Temp Pulse Resp BP Pulse Ox 98.6 F 95 16 123/66 H 99 12/26/19 08:30 12/26/19 08:30 12/26/19 08:30 12/26/19 08:30 12/26/19 08:30 Oxygen Delivery Method Room Air Weight: 103.419 kg Body Mass Index (BMI) 34.7 Finger Stick Blood Glucose 71 Intake and Output for Last 24 Hours 12/24/19 12/25/19 12/26/19 23:59 23:59 23:59 Intake Total 6112.03 / 6112.03 808.33 / 808.33 Output Total 950 / 950 850 / 850 Balance 5162.03 / 5162.03 -41.67 / -41.67 General: Alert, Cooperative, No apparent distress Abdomen: Soft, Distended - Moderately, softly, Tender - Appropriately Skin: Incision - Bandage has small amount of sanguinous drainage in the middle portion. Has not expanded past the marked lines. Otherwise clean dry and intact. Current Medications Acetaminophen (Tylenol) 1,000 mg PO Q8H PRN PRN Reason: Pain Score 1-3/10 Last Admin: 12/25/19 12:51 Dose: 1,000 mg Documented by: Albuterol Sulfate (Ventolin Aerosols) 2.5 mg INHALATION Q4H PRN PRN Reason: ASTHMA Bisacodyl (Dulcolax) 10 mg RECTAL UD PRN PRN Reason: If no BM Enoxaparin Sodium (Lovenox) 40 mg SC DAILY [facility] Last Admin: 12/25/19 03:57 Dose: 40 mg Documented by: Fludrocortisone Acetate (Florinef) 0.1 mg PO TIDCM [facility] Last Admin: 12/26/19 08:15 Dose: 0.1 mg Documented by: Hydrocortisone (Hytone) 1 applic TOPICAL TID PRN PRN; Protocol PRN Reason: Discomfort Naloxone HCl 4 mg/ Dextrose 504 mls @ 0 mls/hr IV .Q0M PRN; Protocol PRN Reason: Respiratory depression Ketorolac Tromethamine (Toradol (Bkc)) 30 mg IV Q6H [facility] Stop: 12/26/19 16:01 Last Admin: 12/26/19 04:00 Dose: 30 mg Documented by: Lamotrigine (Lamictal) 300 mg PO DAILY [facility] Last Admin: 12/25/19 10:09 Dose: 300 mg Documented by: Levothyroxine Sodium (Synthroid) 200 mcg PO DAILY@0600 [facility] Last Admin: 12/26/19 05:33 Dose: 200 mcg Documented by: Methylergonovine Maleate (Methergine) 0.2 mg IM X1 PRN PRN Reason: Uterine Atony Naloxone HCl (Narcan) 0.02 mg IV Q1M PRN PRN Reason: RR <10 and pt unresponsive Ondansetron HCl (Zofran) 4 mg IV Q4H PRN PRN PRN Reason: Nausea Oxycodone HCl (Oxyir) 5 - 10 mg PO Q4H PRN PRN PRN Reason: Pain Score 4-10/10 Last Admin: 12/26/19 05:38 Dose: 5 mg Documented by: Prochlorperazine Edisylate (Compazine Iv) 10 mg IV Q6H PRN PRN PRN Reason: NAUSEA Quetiapine Fumarate (Seroquel) 300 mg PO QHS [facility] Last Admin: 12/25/19 22:22 Dose: 300 mg Documented by: Senna/Docusate Sodium (Senokot-S, Susan-Colace) 0 tablet PO DAILY PRN PRN Reason: Constipation Last Admin: 12/26/19 08:13 Dose: 1 tablet Documented by: Simethicone (Mylicon) 80 mg PO PCHS PRN PRN Reason: Indigestion/stomach pain Last Admin: 12/25/19 22:12 Dose: 80 mg Documented by: Sodium Chloride () 5 - 15 ml IV UD PRN PRN Reason: SALINE FLUSH Last Admin: 12/26/19 04:00 Dose: 10 ml Documented by: Medical Necessity - Tobacco Use Smoking Status: Current every day smoker Assessment/Plan All Active Problems (Last Updated 11/26/18 @ 11:03 by Lyndsey Mooney) Advanced maternal age (AMA) in (Acute) History of bipolar disorder (Acute) Encounter for induction of labor (Acute) Tobacco use affecting , antepartum (Acute) Tobacco use complicating (Acute) Asthma (Acute) Warm reactive antibody (Acute) Acute adrenal crisis (Acute) Dehydration (Acute) Hypotension (Acute) Postoperative day #2 status post primary section. Patient is doing well. Resume home medications. is doing well. Routine care. Follow-up in the office in 1 to 2 weeks or as needed.
--- NOTE | 2019-12-26 09:32 | DCINST_ITS ---
Discharge Diet: No Restrictions - May use dulcolax suppositories as needed to initiate bowel movement Discharge Activity: Return to Normal Activity, May Not Drive - for 2 weeks, May not drive while taking narcotic pain medications., May Shower, May Take a Tub Bath - in 7 days. May resume sexual activity in: 4-6 weeks Lifting Restrictions: 20 pounds Additional Activity Instructions:: Nothing in the vagina for 4-6 weeks. You may return to work/school in 6 weeks. Call your doctor if your incision/area has: Continuous Slow Oozing, Sudden Increased Bleeding, Increased Pain/ Swelling, Increased Redness, Foul Smelling Discharge Call your doctor if you observe: Fever of 101 or Higher, Using more than one pad per hour - for 2 hours Suture Line Care: Avoid Pulling/Pushing, Avoid Pinching/Bending Cleanse incision/area with: Soap & Water, Keep Dressing Clean & Dry, - - Remove the bandage 12/28/19 Additional Instructions: If you experience any of the following, contact your healthcare provider. * Bleeding that soaks a pad every hour for 2 hours * Fever 100.4 or higher * Unrelieved incision or abdominal pain * Swelling, redness, discharge or bleeding from your incision or episiotomy site * Your incision begins to separate * Problems urinating (including inability to urinate or burning while urinating). * Visual changes * Severe headache * Flu-like symptoms * Pain or redness in one of both of your breasts * Pain, warmth, tenderness or swelling in your legs, especially the calf area * Frequent nausea and vomiting * Symptoms of depression or anxiety If you experience any of the following, call 911 or go to the nearest Emergency Room. * Chest pain * Problems breathing * Seizure activity * Partial or complete paralysis of a body part, slurred speech, weakness or drooping of the face, or a sudden inability to walk or hold your balance Allergies/Adverse Reactions: Allergies vortioxetine [From Brintellix] Allergy (Mild, Verified 12/23/19 21:31) Other nickel [Nickel] Adverse Reaction (Verified 12/23/19 21:31) Rash Penicillins Adverse Reaction (Verified 12/23/19 21:31) Abd cramps/diarrhea Medications to take at Discharge albuterol sulfate 90 mcg/actuation aerosol inhaler 1 puff INHALATION Q6H PRN 11/26/18 cholecalciferol (vitamin D3) 125 mcg (5,000 unit) capsule 5,000 unit PO DAILY 11/26/18 fludrocortisone 0.1 mg tablet 0.1 mg PO TID 11/26/18 hydrocortisone 5 mg tablet 15 mg PO BID 11/26/18 levothyroxine 200 mcg tablet 250 mcg PO DAILY 11/26/18 quetiapine 300 mg tablet 300 mg PO QHS 11/26/18 vitamin [id number] B1 1,000 mcg-100 mg/mL injection solution ml IM QMONTH 11/26/18 Lamictal 300 mg PO DAILY 12/24/19 Ibuprofen [Motrin] 800 mg PO TID PRN PRN #60 tab 12/26/19 Oxycodone [Oxyir] 5 mg PO Q6H PRN PRN 7 Days #12 tab 12/26/19 The following prescriptions were given: Ibuprofen [Motrin] 800 mg PO TID PRN PRN #60 tab PRN Reason: Pain Transmission Status: Sent to [facility] Oxycodone [Oxyir] 5 mg PO Q6H PRN PRN 7 Days #12 tab PRN Reason: severe pain Transmission Status: Received by [address] Follow-Up: Call to make an appointment with your doctor for an incision check in 1-2 weeks. You will also need a 6 week post- follow up appointment. Test results from this visit will be discussed in further detail at your follow- up appointment, if applicable. Please Follow Up With: Apurva Banks MD - Call to make an appointment for an incision check in 1-2 [phone] When: You will need a post check in 6 weeks. Primary Care Physician: Agustin Boston MD [Primary Care Provider] -
--- NOTE | 2019-12-26 09:33 | PCM.DC.SUM ---
Discharge Date and Diagnosis - Problem List Patient Problems: Active and Suspected Problems (Last Updated 11/26/18 @ 11:03 by Lyndsey Mooney) Advanced maternal age (AMA) in (Acute) History of bipolar disorder (Acute) Encounter for induction of labor (Acute) Tobacco use affecting , antepartum (Acute) Tobacco use complicating (Acute) Asthma (Acute) Warm reactive antibody (Acute) Date of Admission: 12/22/19 Date of Discharge: 12/26/19 - Primary Discharge Diagnosis Active and Suspected Problems (Last Updated 11/26/18 @ 11:03 by Lyndsey Mooney) Advanced maternal age (AMA) in (Acute) History of bipolar disorder (Acute) Encounter for induction of labor (Acute) Tobacco use affecting , antepartum (Acute) Tobacco use complicating (Acute) Asthma (Acute) Warm reactive antibody (Acute) - Secondary Discharge Diagnosis Chronic Problems (Last Updated 11/26/18 @ 11:03 by Lyndsey Mooney) Hypothyroidism (Chronic) Sahil disease (Chronic) Hospital Course and Treatment Consultations 12/23/19 20:05 Consult: Anesthesia Routine Comment: Reason For Exam: Labor Operations: - - Primary low transverse section via Pfannenstiel skin incision with double layer closure of the uterus with Vicryl sutures. Procedures: None Summary of Care Provided: The patient is a 39 year old female with multiple medical issues was admitted for induction of labor. She progressed to 6 to 7 cm and 90% effaced. However, the station remained -2 nursing exam, -3 by my assessment. There were also persistent variable decelerations and a persistent category 2 heart tracing remote from delivery. When a primary section due to arrest of dilation and descent. During the , is felt that the head was entrapped in the pelvis with a small lower uterine segment fibroid behind the symphysis pubis which was causing some asynclitism and persistent ROP position. The section was performed without difficulty. Postoperatively the patient did well. By postoperative day #2 she is ambulating, urinating tolerating regular diet. Was given routine instructions and prescriptions and to restart her home medications. [] Patient Problems: Active and Suspected Problems (Last Updated 11/26/18 @ 11:03 by Lyndsey Mooney) Advanced maternal age (AMA) in (Acute) History of bipolar disorder (Acute) Encounter for induction of labor (Acute) Tobacco use affecting , antepartum (Acute) Tobacco use complicating (Acute) Asthma (Acute) Warm reactive antibody (Acute) - Physical Exam Vitals/I&O's: Vital Signs Temp Pulse Resp BP Pulse Ox 98.6 F 95 16 123/66 H 99 12/26/19 08:30 12/26/19 08:30 12/26/19 08:30 12/26/19 08:30 12/26/19 08:30 Oxygen Delivery Method Room Air Weight: 103.419 kg Body Mass Index (BMI) 34.7 Finger Stick Blood Glucose 71 Intake and Output for Last 24 Hours 12/24/19 12/25/19 12/26/19 23:59 23:59 23:59 Intake Total 6112.03 / 6112.03 808.33 / 808.33 Output Total 950 / 950 850 / 850 Balance 5162.03 / 5162.03 -41.67 / -41.67 Current Medications Acetaminophen (Tylenol) 1,000 mg PO Q8H PRN PRN Reason: Pain Score 1-3/10 Last Admin: 12/25/19 12:51 Dose: 1,000 mg Documented by: Albuterol Sulfate (Ventolin Aerosols) 2.5 mg INHALATION Q4H PRN PRN Reason: ASTHMA Bisacodyl (Dulcolax) 10 mg RECTAL UD PRN PRN Reason: If no BM Enoxaparin Sodium (Lovenox) 40 mg SC DAILY [facility] Last Admin: 12/25/19 03:57 Dose: 40 mg Documented by: Fludrocortisone Acetate (Florinef) 0.1 mg PO TIDCM [facility] Last Admin: 12/26/19 08:15 Dose: 0.1 mg Documented by: Hydrocortisone (Hytone) 1 applic TOPICAL TID PRN PRN; Protocol PRN Reason: Discomfort Naloxone HCl 4 mg/ Dextrose 504 mls @ 0 mls/hr IV .Q0M PRN; Protocol PRN Reason: Respiratory depression Ketorolac Tromethamine (Toradol (Bkc)) 30 mg IV Q6H [facility] Stop: 12/26/19 16:01 Last Admin: 12/26/19 04:00 Dose: 30 mg Documented by: Lamotrigine (Lamictal) 300 mg PO DAILY [facility] Last Admin: 12/25/19 10:09 Dose: 300 mg Documented by: Levothyroxine Sodium (Synthroid) 200 mcg PO DAILY@0600 [facility] Last Admin: 12/26/19 05:33 Dose: 200 mcg Documented by: Methylergonovine Maleate (Methergine) 0.2 mg IM X1 PRN PRN Reason: Uterine Atony Naloxone HCl (Narcan) 0.02 mg IV Q1M PRN PRN Reason: RR <10 and pt unresponsive Ondansetron HCl (Zofran) 4 mg IV Q4H PRN PRN PRN Reason: Nausea Oxycodone HCl (Oxyir) 5 - 10 mg PO Q4H PRN PRN PRN Reason: Pain Score 4-10/10 Last Admin: 12/26/19 05:38 Dose: 5 mg Documented by: Prochlorperazine Edisylate (Compazine Iv) 10 mg IV Q6H PRN PRN PRN Reason: NAUSEA Quetiapine Fumarate (Seroquel) 300 mg PO QHS [facility] Last Admin: 12/25/19 22:22 Dose: 300 mg Documented by: Senna/Docusate Sodium (Senokot-S, Susan-Colace) 0 tablet PO DAILY PRN PRN Reason: Constipation Last Admin: 12/26/19 08:13 Dose: 1 tablet Documented by: Simethicone (Mylicon) 80 mg PO PCHS PRN PRN Reason: Indigestion/stomach pain Last Admin: 12/25/19 22:12 Dose: 80 mg Documented by: Sodium Chloride () 5 - 15 ml IV UD PRN PRN Reason: SALINE FLUSH Last Admin: 12/26/19 04:00 Dose: 10 ml Documented by: Discharge Diet: No Restrictions Discharge Activity: Return to Normal Activity, May Not Drive - for 2 weeks, May not drive while taking narcotic pain medications., May Shower, May Take a Tub Bath - in 7 days. May resume sexual activity in: 4-6 weeks Additional Activity Instructions:: Nothing in the vagina for 4-6 weeks. You may return to work/school in 6 weeks. Call your doctor if your incision/area has: Continuous Slow Oozing, Sudden Increased Bleeding, Increased Pain/ Swelling, Increased Redness, Foul Smelling Discharge Call your doctor if you observe: Fever of 101 or Higher, Using more than one pad per hour - for 2 hours Suture Line Care: Avoid Pulling/Pushing, Avoid Pinching/Bending Cleanse incision/area with: Soap & Water, Keep Dressing Clean & Dry, - - Remove the bandage 12/28/19 Home Medications: Medications to take at Discharge albuterol sulfate 90 mcg/actuation aerosol inhaler 1 puff INHALATION Q6H PRN 11/26/18 cholecalciferol (vitamin D3) 125 mcg (5,000 unit) capsule 5,000 unit PO DAILY 11/26/18 fludrocortisone 0.1 mg tablet 0.1 mg PO TID 11/26/18 hydrocortisone 5 mg tablet 15 mg PO BID 11/26/18 levothyroxine 200 mcg tablet 250 mcg PO DAILY 11/26/18 quetiapine 300 mg tablet 300 mg PO QHS 11/26/18 vitamin [id number] B1 1,000 mcg-100 mg/mL injection solution ml IM QMONTH 11/26/18 Lamictal 300 mg PO DAILY 12/24/19 Ibuprofen [Motrin] 800 mg PO TID PRN PRN #60 tab 12/26/19 Oxycodone [Oxyir] 5 mg PO Q6H PRN PRN 7 Days #12 tab 12/26/19 Following Prescrptions Were Given to Patient: Ibuprofen [Motrin] 800 mg PO TID PRN PRN #60 tab PRN Reason: Pain Transmission Status: Sent to [facility] [address] Oxycodone [Oxyir] 5 mg PO Q6H PRN PRN 7 Days #12 tab PRN Reason: severe pain Transmission Status: Received by [address] Primary Care Physician: Agustin Boston MD [Primary Care Provider] - Please Follow Up With: Apurva Banks MD - Call to make an appointment for an incision check in 1-2 [phone] When: You will need a post check in 6 weeks. Medical Necessity - Tobacco Use Smoking Status: Current every day smoker Meaningful Use Info Meaningful Use Diagnoses (Choose all that apply): None applicable
[2019-12-26] MEDS: Enoxaparin 40 MG/0.4 ML Syringe SC (10:12)
[2019-12-26] MEDS: lamoTRIgine 100 MG Tablet 300 MG PO (10:13)
== END 2019-12-26 11:55 | disposition home or self-care (01) | DRG 787 ==
PROVIDERS: Obstetrics & Gynecology; Admitting Provider Advanced Practice Midwife; PCP Family Medicine; Visit Provider Advanced Practice Midwife
DX: O76 Abnormality in fetal heart rate and rhythm complicating labor and delivery (principal); O36.0130 Maternal care for anti-D [Rh] antibodies, third trimester, not applicable or unspecified; E27.1 Primary adrenocortical insufficiency; O32.8XX0 Maternal care for other malpresentation of fetus, not applicable or unspecified; O65.5 Obstructed labor due to abnormality of maternal pelvic organs; O34.13 Maternal care for benign tumor of corpus uteri, third trimester; D25.9 Leiomyoma of uterus, unspecified; O99.02 Anemia complicating childbirth; O62.1 Secondary uterine inertia; D64.9 Anemia, unspecified; O99.344 Other mental disorders complicating childbirth; F41.9 Anxiety disorder, unspecified; F31.9 Bipolar disorder, unspecified; O99.62 Diseases of the digestive system complicating childbirth; K21.9 Gastro-esophageal reflux disease without esophagitis; O99.284 Endocrine, nutritional and metabolic diseases complicating childbirth; E03.9 Hypothyroidism, unspecified; E53.8 Deficiency of other specified B group vitamins; E55.9 Vitamin D deficiency, unspecified; O99.52 Diseases of the respiratory system complicating childbirth; J45.909 Unspecified asthma, uncomplicated; O69.81X0 Labor and delivery complicated by cord around neck, without compression, not applicable or unspecified; O99.334 Smoking (tobacco) complicating childbirth; F17.200 Nicotine dependence, unspecified, uncomplicated; Z3A.39 39 weeks gestation of pregnancy; Z37.0 Single live birth; Z79.890 Hormone replacement therapy
CPT/HCPCS: 59025; 59050; 85025; 85027; 86850; 86900; 86901; 94762; 99218; J7030; J7120; A4216; G0378; J2405

== ENCOUNTER → 2020-05-14 | Outpatient (CLI) | payer OTHER, SELFPAY | END | disposition home or self-care (01) | LOC: LABSPEC 11:44 | PROVIDERS: PCP Family Medicine; Referring Provider Family Medicine; Visit Provider Family Medicine | DX: Z20.828 Contact with and (suspected) exposure to other viral communicable diseases (principal) | CPT/HCPCS: 87635; 94799; G2023; U0003 ==

== ENCOUNTER → 2022-03-29 | Outpatient (CLI) | payer OTHER, SELFPAY ==
[2022-03-29 15:37] LABS: Vitamin D,25 Hydroxy 44.1 ng/mL
[2022-03-29 15:41] LABS: ALB/GLOB Ratio 1.4 RATIO (0.9-2.4); AST(SGOT) 20 U/L (15-37); Alanine Aminotransfer ALT/SGPT 27 U/L (13-56); Albumin, Serum 4.2 g/dL (3.2-5.0); Alkaline Phosphatase 82 U/L (45-117); Anion Gap 6 (5-15); BUN 18 mg/dL (7-18); BUN/Creat Ratio 17.8 RATIO (10-20); Calcium,Total 8.9 mg/dL (8.5-10.1); Chloride 102 mmol/L (98-107); Creatinine, Serum 1.01 mg/dL (0.55-1.02); EST Glomerular Filtration Rate 64 mL/min (>60); Est Glom Filt Rate - Afr Amer 78 mL/min (>60); Free T3 2.4 pg/mL (2.18-3.98); Globulin 3.1 g/dL (2.2-4.2); Glucose 97 mg/dL (74-106); Hemoglobin A1c 5.1 % (3.8-5.6); Potassium 4.5 mmol/L (3.5-5.1); Protein, Total 7.3 g/dL (6.4-8.2); Sodium Level 134 mmol/L (136-145); T4 Free Direct 1.11 ng/dL (0.76-1.46); Thyroid Stim Hormone (TSH) 0.73 uIU/mL (0.358-3.74)
[2022-04-01 17:15] LABS: Insulin Like Growth Factor 96 ng/mL (79-259)
== END | disposition home or self-care (01) ==
PROVIDERS: PCP Family Medicine; Referring Provider Internal Medicine Endocrinology, Diabetes & Metabolism; Visit Provider Internal Medicine Endocrinology, Diabetes & Metabolism
DX: E31.0 Autoimmune polyglandular failure (principal); E27.1 Primary adrenocortical insufficiency; E03.9 Hypothyroidism, unspecified; E55.9 Vitamin D deficiency, unspecified
CPT/HCPCS: 36415; 80053; 82306; 83036; 84305; 84439; 84443; 84481

== ENCOUNTER → 2022-08-03 | Outpatient (CLI) | payer OTHER, SELFPAY ==
[2022-08-03 13:42] LABS: ALB/GLOB Ratio 1.3 RATIO (0.9-2.4); AST(SGOT) 29 U/L (15-37); Alanine Aminotransfer ALT/SGPT 42 U/L (13-56); Albumin, Serum 3.7 g/dL (3.2-5.0); Alkaline Phosphatase 69 U/L (45-117); Anion Gap 5 (5-15); BUN 8 mg/dL (7-18); BUN/Creat Ratio 9.7 RATIO (10-20); Chloride 103 mmol/L (98-107); Creatinine, Serum 0.83 mg/dL (0.55-1.02); EST Glomerular Filtration Rate 81 mL/min (>60); Est Glom Filt Rate - Afr Amer 98 mL/min (>60); Globulin 2.8 g/dL (2.2-4.2); Glucose 87 mg/dL (74-106); Potassium 4.5 mmol/L (3.5-5.1); Protein, Total 6.5 g/dL (6.4-8.2); Sodium Level 135 mmol/L (136-145); Thyroid Stim Hormone (TSH) 1.63 uIU/mL (0.358-3.74)
== END | disposition home or self-care (01) ==
LOC: MTLAB 09:46
PROVIDERS: PCP Family Medicine; Referring Provider Internal Medicine Endocrinology, Diabetes & Metabolism; Visit Provider Internal Medicine Endocrinology, Diabetes & Metabolism
DX: E27.1 Primary adrenocortical insufficiency (principal); E31.0 Autoimmune polyglandular failure; E03.9 Hypothyroidism, unspecified
CPT/HCPCS: 36415; 80053; 83036; 84439; 84443

== ENCOUNTER → 2023-01-05 | Outpatient (CLI) | payer OTHER, SELFPAY ==
[2023-01-05 10:31] LABS: Absolute Lymphocyte Count 1.79 X10^3/uL (0.83-4.51); Absolute Neutrophil Count 2.1 X10^3/uL (2.0-7.7); Basophil# 0.05 X10^3/uL; Basophil% 1.1 % (0-1); Eosinophil# 0.03 X10^3/uL; Eosinophils% 0.7 % (0-5); Hematocrit 45.6 % (37-47); Hemoglobin 15.5 g/dL (12.0-15.0); Lymphocyte # 1.79 X10^3/ul (0.83-4.51); Mean Corpuscular Hgb 31.4 pg (27.0-32.0); Mean Corpuscular Volume 92.5 fL (81-99); Mean Platelet Vol. 9.8 fl (6.2-12.0); Monocyte# 0.54 X10^3/uL; Monocyte% 12.1 % (0-10); NRBC Flagged by Analyzer 0 % (0-5); Neutrophil # 2.06 X10^3/uL (2.7-7.7); Neutrophil % 45.9 % (47-70); Platelet Count 290 K/mm3 (150-450); RBC Distribution Width CV 11.3 % (11.6-14.6); RBC Distribution Width SD 38.6 fl (35.1-43.9); Red Blood Count 4.93 M/mm3 (4.2-5.4); White Blood Count 4.5 K/mm3 (4.4-11.0)
[2023-01-05 10:53] LABS: ALB/GLOB Ratio 1.3 RATIO (0.9-2.4); AST(SGOT) 15 U/L (15-37); Alanine Aminotransfer ALT/SGPT 18 U/L (13-56); Albumin, Serum 3.7 g/dL (3.2-5.0); Alkaline Phosphatase 54 U/L (45-117); Anion Gap 4 (5-15); BUN 7 mg/dL (7-18); BUN/Creat Ratio 7.5 RATIO (10-20); Calcium,Total 9.1 mg/dL (8.5-10.1); Chloride 106 mmol/L (98-107); Cholesterol 150 mg/dL (200); Creatinine, Serum 0.93 mg/dL (0.55-1.02); EST Glomerular Filtration Rate 70 mL/min (>60); Est Glom Filt Rate - Afr Amer 85 mL/min (>60); Ferritin 36 ng/mL (8-252); Globulin 2.9 g/dL (2.2-4.2); Glucose 101 mg/dL (74-106); High Density Lipoprotein 33 mg/dL; Potassium 4.4 mmol/L (3.5-5.1); Protein, Total 6.6 g/dL (6.4-8.2); Sodium Level 136 mmol/L (136-145); T4 Free Direct 1.42 ng/dL (0.76-1.46); Thyroid Stim Hormone (TSH) 0.22 uIU/mL (0.358-3.74); Triglycerides 133 mg/dL; Very Low Density Lipoprotein 27 mg/dL (5-40)
== END | disposition home or self-care (01) ==
LOC: MTLAB 08:46
PROVIDERS: PCP Family Medicine; Referring Provider Internal Medicine Endocrinology, Diabetes & Metabolism; Visit Provider Internal Medicine Endocrinology, Diabetes & Metabolism
DX: Z78.9 Other specified health status (principal); E27.1 Primary adrenocortical insufficiency; E03.9 Hypothyroidism, unspecified
CPT/HCPCS: 36415; 80053; 80061; 82728; 84439; 84443; 85025

== ENCOUNTER → 2023-02-02 | Outpatient (CLI) | payer OTHER, SELFPAY ==
[2023-02-02 17:14] LABS: Vitamin B12 903 pg/mL (211-911)
== END | disposition home or self-care (01) ==
PROVIDERS: PCP Internal Medicine; Referring Provider Internal Medicine; Visit Provider Internal Medicine
DX: E53.8 Deficiency of other specified B group vitamins (principal)
CPT/HCPCS: 36415; 82607

== ENCOUNTER 2023-03-23 06:28 | Day surgery (SDC) | payer OTHER, SELFPAY ==
[2023-03-23] VITALS (7 sets, daily range): BP systolic 81–100; BP diastolic 46–72; PULSE 83–91; RESP 16–18; TEMP 36.4–37.1; O2SAT 97–100; BMI 25.2
--- NOTE | 2023-03-23 | GASB_PTH ---
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 Ryder Ramírez MD : 1980 BED: DIS: 03/23/2023 SPEC #: [id number] RECD: 03/23/23 14:03 STATUS: INDERJIT KIANA #: [id number] DARIO: 03/23/23 00:[address]: Ryder Ramírez DEPT: SURGICAL PATHOLOGY RECD BY: Kalyan Jackson ENTERED: 03/23/23 14:03 SP TYPE: Gastric Bx OTHR DR: Dr. Thania Matthews MD Tissues: A - Gastric mucous membrane B - Gastric mucous membrane C - Gastric mucous membrane D - Esophageal mucous membrane Procedures: Special Stain Group II Surgery Specimen Level IV Alcian Blue/PAS (control) HEADER OPERATION: EGD ([facility]), biopsy PRE-OP DIAGNOSIS: GERD TISSUE SUBMITTED: A ? Prepylorus biopsy, B ? Gastric, greater curvature biopsy, C ? Polyp gastric body, greater curvature, D ? Z-line biopsy MICROSCOPIC DIAGNOSIS A. Prepyloric region, biopsy: Mild chronic gastritis with focal acute gastritis. B. Stomach, greater curvature, biopsy: Mild chronic gastritis. See comment. C. Gastric polyp, biopsy: Fragments of mildly hyperplastic superficial gastric mucosa. D. Z-line, biopsy: Gastroesophageal junctional mucosa with chronic inflammation. No evidence of goblet cell metaplasia. See comment. AM:arlene 03/24/2023 COMMENT B. The results of immunohistochemistry for Helicobacter pylori will be reported separately ([id number]). D. Alcian blue/PAS stain with matched control supports the above diagnosis. MICROSCOPIC DESCRIPTION Slides are reviewed. GROSS DESCRIPTION A - Received in fixative is one container labeled with the patient's name and designated biopsy prepylorus. The specimen consists of two irregular fragments of light alberts soft tissue that in aggregate measure 0.6 x 0.3 x 0.1 cm. The specimen is totally submitted in one cassette. B - Received in fixative is one container labeled with the patient's name and designated biopsy gastric body, greater curvature. The specimen consists of one irregular fragment of light alberts soft tissue that measures 0.3 x 0.3 x 0.1 cm. The specimen is totally submitted in one cassette. C - Received in fixative is one container labeled with the patient's name and designated polyp gastric body, greater curvature. The specimen consists of multiple irregular fragments of light alberts soft tissue that in aggregate measure 0.5 x 0.5 x 0.1 cm. The specimen is totally submitted in one cassette. D - Received in fixative is one container labeled with the patient's name and designated biopsy Z-line. The specimen consists of multiple irregular fragments of light alberts soft tissue that in aggregate measure 0.6 x 0.3 x 0.1 cm. The specimen is totally submitted in one cassette. / SJ:rg 03/23/2023 TC:3 CPT: 63268 x4, 49010
[2023-03-23 07:01] LABS: Internal QC Validated? YES +Cl - CLEAR BKGD; Pregnancy, Urine Negative Negative
[2023-03-23] MEDS: Lactated Ringers 1,000 ML 15 ML IV (07:13)
--- NOTE | 2023-03-23 07:22 | HP.PCM_ITS ---
History and Physical Date of Admission: 03/23/23 Date of Service:? 02/20/23 MR#: [id number] Acct: [id number] Name:GET ELLIOTT Rep #: [id number] : 1980 ? ? Provider: Dr. Ryder Ramírez MD Age/Sex:? 42/F ? ? Location: [facility] Status: Signed Intake Vital Signs ? 02/21/2308:59 Height 5 ft 7 in Weight: 166 lb 2 oz BMI 26.0 BP 102/70 Blood Pressure Location Rt brachial Position Sitting Respiration 19 H Pulse 83 Pulse Source Monitor Temp 97.3 F L Temp Source Temporal Pulse Oximetry (%) 100 Oxygen Delivery Method room air Intake Visit Reasons:?Reflux Chief Complaint: reflux Allergies vortioxetine [From Brintellix] Allergy (Mild, Verified 12/29/22 09:34) Othernickel [Nickel] Adverse Reaction (Verified 12/29/22 09:34) RashPenicillins Adverse Reaction (Verified 12/29/22 09:34) Abd cramps/diarrhea PFSH Medical History?(Updated 02/02/23 @ 15:[address] 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 delivery delivered H/O breast biopsy H/O rhinoplasty Hx laparoscopic cholecystectomy Family History? Father Hyperlipidemia Hypertension Arthritis Cancer ?? ? prostateGrandmother Hypertension Autoimmune disorder Breast cancer Cervical cancer Ovarian cancer Thyroid disorder Uterine cancerGrandfather Alcoholism Autoimmune disorder ?? ? rheumatoid arthritis Diabetes Myocardial infarction CVA (cerebral vascular accident)Mother Anxiety Arthritis DepressionSon DiabetesBrother HypertensionOther High cholesterol Social History? household members:? spouse and family current occupational status:? 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 Current every day smoker tobacco type: cigarettes Electronic Cigarette Use:? not used alcohol intake:? never substance use type:? does not use caffeine:? Yes what type of physical activity do you participate in:? none seatbelt use:? always do you feel safe at home:? Yes additional social history:? 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 They are referred for surgical consultation from Dr. Matthews. ? Patient reports that she has been on Protonix for years.? She has tried to come off of the medication and found very mild worsening of her symptoms as a result.? She notes that before starting the Protonix she would experience primarily reflux symptoms with a frequency of several times per day.? She now notes that her symptoms still occur a couple of times per day, but present namely as indigestion that resolves with a simple burp or hiccup.? She also reports burning within her belly when using energy drinks.? She states that because of this she tries to stick to coffee and reports her consumption of one half a pot to 1 pot per day.? She denies any use of tea or alcohol alongside of this caffeine intake.? She states that she needs to maintain this high level of caffeine intake because she does not sleep well on the account of caring for her 3-year-old and a 15-year-old with type 1 diabetes that has widely varying glycemic control. Patient denies any feelings of food becoming stuck, but does feel like food sometimes goes down slowly.? They have not attempted dietary modifications In addition to the above, patient remarks of a chronic history of constipation.? She states that she has raised this issue with multiple medical providers, but no one was ever worried about it.? She notes that when she uses fiber and MiraLAX this helps her to have a bowel movement after 2 to 3 days.? She notes that these are nonbloody bowel movements.? She has no associated abdominal pain. In addition above, patient remarks of a history of chronic fatigue, but states that she believes this goes [id number] with her diagnoses of Tyronza's and hypothyroidism. Patient's weight has fluctuated widely with her use of steroids for treatment of her Tyronza's disease.? She believes that hydrocortisone has been particularly troublesome for her weight gain.? She currently weighs 166 pounds, but states her heaviest was 265 pounds. Patient has a history of tobacco use x23 years at 1 pack/day.? She reports that she underwent smoking cessation via cold turkey approach 3 weeks ago and has not touched a cigarette since. Patient's past surgical history includes uncomplicated lap josé miguel in 2014 and C- section in 2019. Familially, patient has a mother with peptic ulcer and precancerous cells that were noted on a recent EGD along with a hiatal hernia.? She also reports that her father was diagnosed with large colon polyps, but these were pathologically benign.? There is no familial history of colon cancer, diverticulitis, or inflammatory bowel disease. ROS General General: Yes fatigue; No weight change, appetite, colon cancer, breast cancer or weakness HEENT HEENT: No difficulty swallowing, eye injury, eye surgery, swollen glands or hoarseness Endo Endocrine: Yes thyroid disease; No diabetes mellitus, thyroid cancer, Hair loss, heat intolerance or cold intolerance Skin Skin: No rash or changing moles Breast Breast: No left breast lump, right breast lump, nipple discharge, breast pain, abnormal mammogram, abnormal US or breast enlargement Musc Musculoskeletal: No back problems, arthritis, rheumatoid arthritis, gout or joint pain Cardio Cardiovascular: No murmur, pacemaker, heart disease, atrial fibrillation, high blood pressure, heart attack, heart stent, palpitations, shortness of breat with exertion or chest pain Psych Psychiatric: Yes depression and anxiety; No hearing voices Resp Respiratory: No shortness of breath, No sleep apnea, No cough, No COPD, No asthma, No emphysema and No wheezing Gastro Gastrointestinal: No abdominal pain, No nausea or vomiting, No diarrhea, No constipation, No blood in stool, No acid reflux, No hemorrhoids, No ulcers, No gallbladder problem and No black,tarry stools Eprez Hematologic: No blood thinners, No blood disorders, No bleeding, No anemia and No blood clots Neuro Neurologic: No system reviewed and no additional complaints, except as documented, No as per HPI, No abnormal gait, No abnormal hearing, No abnormal movements, No abnormal speech, No behavioral changes, No burning sensations, No confusion, No convulsions, No disequilibrium, No dizziness, No localized weakness, No frequent falls, No headache(s), No lack of coordination, No loss of vision, No memory loss, Yes numbness, No other visual disturbances, No radicular pain, No restless legs, No sensory deficit, No syncope, Yes tingling, No tremor(s), No weakness and No other Exam Const General: cooperative, comfortable and anxious Orientation: alert, awake and oriented x3 Resp Effort & Inspection: normal respiratory effort Auscultation: no rales, no rhonchi and no wheezes Cardio Rate: regular rate Rhythm: regular rhythm Heart Sounds: S1 normal and S2 normal GI Other: Numerous abdominal striae present.? Well-healed laparoscopic port site incisions.? Nondistended, soft, nontender to palpation x4 quadrants. Assessment and Plan Assessment and Plan (1) GERD (gastroesophageal reflux disease): ?Plan: This is a 42-year-old female, with longstanding history of GERD, who presents for possible EGD upon request of Dr. Matthews.? She states that she has been on PPI (Protonix) for many years with partial control of her symptoms.? She reports difficulty primarily with reflux, but does have some heartburn.? It is apparent from her history, that she has an exceptional amount of caffeine intake.? I have cautioned her against some of this intake and recommended some dietary/lifestyle modifications (specifically including spacing mealtime from bedtime and elevating head of bed).? And while patient does not meet guideline criteria as we have with males over the age of 50 with concurrent tobacco use and GERD symptoms, I find it reasonable to pursue a diagnostic EGD on the account of her chronic steroid use and long-term tobacco habit.? This is especially true as I learn her familial history and her reports of precancerous cells being found on a recent EGD exam for her mother.? Therefore, we will plan to schedule EGD under local MAC at first mutually available timing.? Patient informed that she would require a lifter/driver the day of the procedure on the account of her procedural sedation.? All questions were answered. Interval: Patient denies any health changes since our last encounter. Further, she denies any questions related to today's EGD. Therefore, will proceed with exam as planned.
--- NOTE | 2023-03-23 07:30 | IMM_PTH ---
PATIENT: GET PORTER LOC: EN U#:[id number] AGE/SX: 42/F ROOM: RE03/23/[address]: Dr. Ryder Ramírez MD : 1980 BED: DIS: 03/23/2023 SPEC #: [id number] RECD: 03/23/23 14:07 STATUS: INDERJIT RECrow #: [id number] DARIO: 03/23/23 07:[address]: Ryder Ramírez DEPT: IMMUNOHISTOCHEMISTRY RECD BY: Sigrid Quinn ENTERED: 03/23/23 14:08 SP TYPE: IMMUNO OTHR DR: Dr. Thania Matthews MD Tissues: B - Stomach, NOS Procedures: H Pylori (initial) PHYSICIAN & INSTITUTION [place] [address] SPECIMEN INFORMATION: Tissue Source: B ? Gastric body, greater curvature Clinical Info: GERD Specimen Number: [id number] CPT code: 34025 METHODOLOGY: Deparaffinized sections of prefer/formalin-fixed tissue or PAP/DQ stained slides are incubated with monoclonal/polyclonal antibodies/oligonucleotide probes. Localization is made via biotin free immunoperoxidase method. Appropriate controls are performed and reacted as expected. Results on target cell population are indicated in the following table: RESULTS: ANTIBODY / CLONE RESULT Block B H Pylori (polyclonal) negative These tests were developed and their performance characteristics determined by [facility]. They may not have been cleared or approved by the [place]. Food and Drug Administration. The FDA has determined that such clearance or approval is not necessary. The above immunohistochemical/dualISH markers are ordered and reviewed by the Pathologist. INTERPRETATION: B. Gastric body, greater curvature, biopsy: Negative for Helicobacter pylori organisms. AM:arlene 03/24/2023
--- NOTE | 2023-03-23 08:03 | OP.EGD_ITS ---
Patient Name: Tracy Arteaga Procedure Date: 03/23/2023 7:23 AM Date of : 1980 Age: 42 Procedure: Upper GI endoscopy Indications: Gastro-esophageal reflux disease Providers: Ryder Ramírez MD Referring MD: Ryder Ramírez MD Medicines: See the Anesthesia note for documentation of the administered medications Patient Profile: Refer to note in patient chart for documentation of history and physical. Complications: No immediate complications. Estimated blood loss: Minimal. Procedure: Pre-Anesthesia Assessment: - The heart rate, respiratory rate, oxygen saturations, blood pressure, adequacy of pulmonary ventilation, and response to care were monitored throughout the procedure. After obtaining informed consent, the endoscope was passed under direct vision. Throughout the procedure, the patient's blood pressure, pulse, and oxygen saturations were monitored continuously. The gastroscope was introduced through the mouth, and advanced to the second part of duodenum. The upper GI endoscopy was accomplished without difficulty. The patient tolerated the procedure well. Scope In: 7:38:12 AM Scope Out: 7:53:18 AM Total Procedure Duration Time 0 hours 15 minutes 6 seconds Findings: The duodenal bulb, first portion of the duodenum and second portion of the duodenum were normal. No biopsies or other specimens were collected for this exam. Localized mildly erythematous mucosa without bleeding was found in the prepyloric region of the stomach. Biopsies were taken with a cold forceps for histology. Estimated blood loss was minimal. Localized mildly erythematous mucosa without bleeding was found on the greater curvature of the gastric body. Biopsies were taken with a cold forceps for histology. Estimated blood loss was minimal. A few 3 mm semi-sessile polyps with no bleeding and no stigmata of recent bleeding were found in the cardia. Biopsies were taken with a cold forceps for histology. Estimated blood loss was minimal. A small hiatal hernia was present. No biopsies or other specimens were collected for this exam. The Z-line was irregular and was found 39 cm from the incisors. Biopsies were taken with a cold forceps for histology. Estimated blood loss was minimal. No gross lesions were noted in the entire esophagus. No biopsies or other specimens were collected for this exam. Impression: - Normal duodenal bulb, first portion of the duodenum and second portion of the duodenum. No specimens collected. - Erythematous mucosa in the prepyloric region of the stomach. Biopsied. - Erythematous mucosa in the greater curvature of the gastric body. Biopsied. - A few gastric polyps. Biopsied. - Small hiatal hernia. No specimens collected. - Z-line irregular, 39 cm from the incisors. Biopsied. - No gross lesions in esophagus. No specimens collected. Recommendation: - Discharge patient to home (via wheelchair). - Resume previous diet today. - Continue present medications. - Await pathology results. - Telephone my office for pathology results in 1 week. Procedure Code(s): --- Professional --- 84615, Esophagogastroduodenoscopy, flexible, transoral; with biopsy, single or multiple Diagnosis Code(s): --- Professional --- K31.89, Other diseases of stomach and duodenum K31.7, Polyp of stomach and duodenum K44.9, Diaphragmatic hernia without obstruction or gangrene K22.8, Other specified diseases of esophagus K21.9, Gastro-esophageal reflux disease without esophagitis CPT copyright 2017 [employer]. All rights reserved. The codes documented in this report are preliminary and upon chief of surgery review may be revised to meet current compliance requirements. Ryder Ramírez MD 03/23/2023 8:03:38 AM This report has been signed electronically. Number of Addenda: 0 Note Initiated On: 03/23/2023 7:23 AM
--- NOTE | 2023-03-23 08:04 | OP.CCLET_ITS ---
03/23/2023 Thania Matthews Md Re : Upper GI endoscopy procedure for Tracy Arteaga Dear [place] This procedure was performed on March. My impressions and recommendations are as follows: Impressions : - Normal duodenal bulb, first portion of the duodenum and second portion of the duodenum. No specimens collected. - Erythematous mucosa in the prepyloric region of the stomach. Biopsied. - Erythematous mucosa in the greater curvature of the gastric body. Biopsied. - A few gastric polyps. Biopsied. - Small hiatal hernia. No specimens collected. - Z-line irregular, 39 cm from the incisors. Biopsied. - No gross lesions in esophagus. No specimens collected. Recommendations : - Discharge patient to home (via wheelchair). - Resume previous diet today. - Continue present medications. - Await pathology results. - Telephone my office for pathology results in 1 week. My findings are described in the full procedure note, which is enclosed. If I can be of further assistance, please feel free to contact me at Doctor phone number(s): , Work: . Sincerely, Ryder Ramírez MD 03/23/2023 8:03:38 AM This report has been signed electronically.
== END 2023-03-23 08:35 | disposition home or self-care (01) ==
LOC: EN 06:29 → AC 06:30
PROVIDERS: Anesthesiology; PCP Internal Medicine; Referring Provider Internal Medicine; Visit Provider Surgery
PROC: 0DJ08ZZ Inspection of Upper Intestinal Tract, Via Natural or Artificial Opening Endoscopic (ICD-10-PCS; CPT 43235; principal; 2023-03-23 07:25)
DX: K21.9 Gastro-esophageal reflux disease without esophagitis (principal); F31.9 Bipolar disorder, unspecified; E27.1 Primary adrenocortical insufficiency; K44.9 Diaphragmatic hernia without obstruction or gangrene; K31.7 Polyp of stomach and duodenum; K22.89 Other specified disease of esophagus; K29.00 Acute gastritis without bleeding; E03.9 Hypothyroidism, unspecified; M79.7 Fibromyalgia; F41.9 Anxiety disorder, unspecified; Z79.899 Other long term (current) drug therapy; Z87.891 Personal history of nicotine dependence
CPT/HCPCS: 43239; 81025; 88305; 88313; 88342; J7120; J2405

== ENCOUNTER → 2023-08-08 | Outpatient (CLI) | payer OTHER, SELFPAY ==
[2023-08-08 12:37] LABS: Vitamin B12 979 pg/mL (211-911)
== END | disposition home or self-care (01) ==
LOC: BIMLAB 08:37
PROVIDERS: PCP Internal Medicine; Visit Provider Internal Medicine
DX: E53.8 Deficiency of other specified B group vitamins (principal)
CPT/HCPCS: 36415; 82607

== ENCOUNTER → 2023-09-29 | Outpatient (CLI) | payer OTHER, SELFPAY ==
[2023-09-29 12:39] LABS: Absolute Lymphocyte Count 1.99 X10^3/uL (0.83-4.51); Basophil# 0.06 X10^3/uL; Basophil% 1.6 % (0-1); Eosinophil# 0.01 X10^3/uL; Eosinophils% 0.3 % (0-5); Hematocrit 46.4 % (37-47); Lymphocyte # 1.99 X10^3/ul (0.83-4.51); Lymphocyte % 54.1 % (19-41); Mean Corp Hgb Conc 34.5 g/dL (32-36); Mean Corpuscular Hgb 32.3 pg (27.0-32.0); Mean Corpuscular Volume 93.7 fL (81-99); Mean Platelet Vol. 10.2 fl (6.2-12.0); Monocyte# 0.58 X10^3/uL; Monocyte% 15.8 % (0-10); NRBC Flagged by Analyzer 0 % (0-5); Neutrophil # 1.03 X10^3/uL (2.7-7.7); Neutrophil % 27.9 % (47-70); Platelet Count 262 K/mm3 (150-450); RBC Distribution Width CV 11.8 % (11.6-14.6); RBC Distribution Width SD 40.6 fl (35.1-43.9); Red Blood Count 4.95 M/mm3 (4.2-5.4); White Blood Count 3.7 K/mm3 (4.4-11.0)
[2023-09-29 13:09] LABS: ALB/GLOB Ratio 1.3 RATIO (0.9-2.4); AST(SGOT) 15 U/L (15-37); Alanine Aminotransfer ALT/SGPT 18 U/L (13-56); Alkaline Phosphatase 53 U/L (45-117); Anion Gap 6 (5-15); BUN 9 mg/dL (7-18); BUN/Creat Ratio 8.7 RATIO (10-20); Chloride 101 mmol/L (98-107); Creatinine, Serum 1.03 mg/dL (0.55-1.02); EST Glomerular Filtration Rate 63 mL/min (>60); Est Glom Filt Rate - Afr Amer 76 mL/min (>60); Ferritin 57 ng/mL (8-252); Globulin 3.1 g/dL (2.2-4.2); Glucose 86 mg/dL (74-106); Potassium 5.1 mmol/L (3.5-5.1); Protein, Total 7.1 g/dL (6.4-8.2); Sodium Level 131 mmol/L (136-145); T4 Free Direct 1.43 ng/dL (0.76-1.46); Thyroid Stim Hormone (TSH) 0.25 uIU/mL (0.358-3.74)
== END | disposition home or self-care (01) ==
LOC: BIMLAB 09:58
PROVIDERS: PCP Internal Medicine; Referring Provider Internal Medicine Endocrinology, Diabetes & Metabolism; Visit Provider Internal Medicine Endocrinology, Diabetes & Metabolism
DX: E27.1 Primary adrenocortical insufficiency (principal); E03.9 Hypothyroidism, unspecified
CPT/HCPCS: 36415; 80053; 82728; 84439; 84443; 85025

== ENCOUNTER → 2023-10-25 | Outpatient (CLI) | payer OTHER, SELFPAY ==
[2023-10-25 15:55] LABS: Vitamin B12 472 pg/mL (211-911)
[2023-10-25 16:15] LABS: T4 Free Direct 0.94 ng/dL (0.76-1.46); Thyroid Stim Hormone (TSH) 7.61 uIU/mL (0.358-3.74)
== END | disposition home or self-care (01) ==
LOC: BIMLAB 11:52
PROVIDERS: PCP Internal Medicine; Referring Provider Internal Medicine Endocrinology, Diabetes & Metabolism; Visit Provider Internal Medicine Endocrinology, Diabetes & Metabolism
DX: E03.8 Other specified hypothyroidism (principal); E06.3 Autoimmune thyroiditis; E53.8 Deficiency of other specified B group vitamins
CPT/HCPCS: 36415; 82607; 84439; 84443

== ENCOUNTER 2023-11-22 08:04 | Emergency (ER) | payer OTHER, SELFPAY ==
[2023-11-22 08:05] VITALS: BP 99/58; PULSE 121; RESP 18; TEMP 35.5; O2SAT 100; BMI 26.5
--- NOTE | 2023-11-22 08:24 | EDS_ITS ---
HPI History of Present Illness Chief Complaint: Nausea/Vomiting Detail of Chief Complaint: Nausea and vomiting Informant: patient Narrative Narrative: Patient presents to the emergency department with complaint of nausea and vomiting. Patient states symptoms started suddenly around 9 PM last night. Patient has vomited more than 10 times. She is 8 weeks . She is . She has not had any significant issues with vomiting with this thus far. She denies abdominal pain but does describe feeling gassy. She has not had diarrhea. Her last bowel movement was yesterday. She denies dysuria or urgency or frequency. She denies vaginal bleeding. Patient does have history of [place]'s and states that she has not been able to take her steroids since yesterday at 2 PM. Patient just feels weak and dehydrated. [facility] Medical History Adrenal disorder Adrenal insufficiency, primary, autoimmune Allergies Anemia Anxiety Anxiety and depression Asthma B12 deficiency Back pain Back problem Bilateral breast cysts Bipolar 1 disorder Breast lump Depression Elevated hematocrit Fibromyalgia Former smoker Frequent headaches Gastric reflux GERD (gastroesophageal reflux disease) H/O Sahil's disease H/O emotional problems History of steroid therapy Hypercholesterolemia Hypertriglyceridemia Hypocomplementemia Insomnia Leukopenia Neuropathy P-ANCA titer positive Pancreatic islet antibody positive Peripheral edema 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 Primary adrenal insufficiency Raynauds disease Restless legs Tension headache Thyroid disease Vegetarian diet Vision problems Vitamin D deficiency Wears dentures Wears glasses Home Medications albuterol sulfate 90 mcg/actuation aerosol inhaler (ProAir HFA) 1 puff inhalation Q6H PRN Asthma 11/26/18 [History Last Taken Unknown] cholecalciferol (vitamin D3) 125 mcg (5,000 unit) capsule 5,000 unit PO DAILY Check with primary doctor 11/26/18 [History Last Taken Unknown] ibuprofen 800 mg tablet 800 mg PO TID PRN PRN Pain #60 tabs 12/26/19 [Rx Last Taken Unknown] Lamictal 200 mg PO BID Check with primary doctor 01/10/22 [History Last Taken 03/23/23] aripiprazole 10 mg tablet (Abilify) 15 mg PO DAILY 03/20/23 [History Last Taken Unknown] cyanocobalamin (vitamin B-12) 500 mcg tablet (Vitamin B-12) 500 mcg PO DAILY 03/20/23 [History Last Taken Unknown] betamethasone dipropionate 0.05 % lotion 1 applic topical DAILY PRN itching #60 mL 06/28/23 [Rx Last Taken Unknown] pantoprazole 40 mg tablet,delayed release 40 mg PO DAILY #90 tabs 07/26/23 [Rx Last Taken Unknown] fludrocortisone 0.1 mg tablet 0.1 mg PO DAILY PRN Dehydration #90 tabs 09/29/23 [Rx Last Taken Unknown] hydrocortisone 5 mg tablet See Rx Instructions PO BID #540 tabs 09/29/23 [Rx Last Taken Unknown] levothyroxine 175 mcg tablet 175 mcg PO DAILY #90 tabs 10/26/23 [Rx Last Taken Unknown] ondansetron 4 mg disintegrating tablet 4 mg PO Q8H PRN PRN Nausea #10 tabs 11/22/23 [Rx Last Taken Unknown] Allergy/AdvReac Type Severity Reaction Status Date / Time vortioxetine Allergy Mild Other Verified 11/22/23 08:19 [From Brintellix] nickel [Nickel] AdvReac Rash Verified 11/22/23 08:19 Penicillins AdvReac Abd Verified 11/22/23 08:19 cramps/diarrhea Family History Father Hyperlipidemia Hypertension Arthritis Cancer prostate Grandmother Hypertension Autoimmune disorder Breast cancer Cervical cancer Ovarian cancer Thyroid disorder Uterine cancer Grandfather Alcoholism Autoimmune disorder rheumatoid arthritis Diabetes Myocardial infarction CVA (cerebral vascular accident) Mother Anxiety Arthritis Depression Son Diabetes Brother Hypertension Other High cholesterol Surgical History delivery delivered H/O breast biopsy H/O rhinoplasty Hx laparoscopic cholecystectomy Social History household members: spouse and family current occupational status: unemployed 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 ROS ED Review of Systems ROS Unobtainable: other Constitutional Constitutional ED: Reports lethargy; Denies chills, fever(s), sweats or weight loss Eyes Eyes: Denies blurry vision, change in vision or diplopia ENT ENT ED: Denies rhinorrhea or sore throat Cardiovascular Cardiovascular: Denies chest pain, orthopnea or racing heartbeat Respiratory/Chest Respiratory/Chest: Denies cough, dyspnea, dyspnea on exertion, orthopnea or sputum Gastrointestinal Gastrointestinal: Reports nausea and vomiting; Denies abdominal pain or diarrhea Genitourinary Genitourinary ED: Denies dysuria, hematuria or urinary frequency Musculoskeletal Musculoskeletal: Denies arthralgias, back pain, myalgias or neck pain Integumentary Denies abscess, Abrasions or rash Neurologic Neurologic: Reports weakness; Denies headache(s) Psychiatric Psychiatric: Denies anxiety, depression or suicidal thoughts Endocrine Endocrinology: Denies polydipsia, polyphagia or polyuria Hematologic/Lymphatic Hematologic/Lymphatic: Denies easy bleeding, easy bruising or lymphadenopathy Allergic/Immunologic Allergic/Immunologic ED: Denies mouth swelling, tongue swelling or urticaria EXAM Physical Exam Const Vital Signs: 11/22/23 08:05 11/22/23 11:06 Temperature 96 F L Temperature Source Temporal Pulse Rate 121 H 117 H Respiratory Rate 18 Blood Pressure 99/58 L 97/60 Blood Pressure Mean 71 72 Pulse Ox 100 97 Oxygen Delivery Method Room Air Room Air Positive well nourished and well developed General Appearance ED: well developed and NAD HEENT Reports TM's clear and moist mucous membranes normocephalic and atraumatic; Negative for trauma or tenderness Tympanic Membrane ED: Yes TM's clear Eyes PERRL and EOMs intact bilaterally General Eye ED: Negative for pale conjunctiva or scleral icterus Neck no lymphadenopathy, supple and no JVD General: Negative for tenderness Chest Wall inspection of chest normal and palpation of chest normal Chest: Negative for tenderness Resp normal respiratory effort and clear to auscultation bilaterally Effort and Inspection: Negative for respiratory distress or pain with movement Auscultation: Negative for rhonchi, wheezes or diminished lung sounds Cardio regular rate, regular rhythm, S1 normal heart sound, S2 normal heart sound and no murmurs Peripheral Pulses: pulses 2+ throughout GI normal to inspection, nondistended, normoactive bowel sounds, soft to palpation, non-tender, non-distended and no masses GI Narrative: Patient has no significant tenderness on exam. No rebound, rigidity, or perineal signs. Back/Spine no CVA tenderness and no thoracic nor lumbar tenderness Extremity normal to inspection General Extremety ED: Negative for edema General Extremity: Negative for edema Neuro oriented x3, CN's II-XII intact bilaterally, no sensory deficits noted and gait normal Sensorium / Orientation: awake, alert, oriented to person, oriented to place and oriented to time Motor Exam: strength 5/5 throughout and strength abnormal Psych mental status grossly normal Skin no rashes or lesions noted and no wounds MDM MDM MDM Narrative Medical decision making narrative: Patient presents with vomiting that started yesterday. No significant abdominal pain. She does have history of [place]'s. Her blood pressure on arrival 99/58 and states that its about typical maybe a little lower than usual. IV line will be established. Patient will be given normal saline fluid bolus and will be given dexamethasone 4 mg IV. Basic labs will be obtained. 4 mg of Zofran also will be given. CBC with differential obtained showed a white count of 5.8 with hemoglobin 16 and platelet count of 220. Chemistries unremarkable. CO2 was depressed at 13. Patient received 2 L of fluid and repeat BMP obtained showed improvement in the CO2 to 18. Urinalysis unremarkable. After treatment with Zofran and fluids she had no further vomiting. She was able to tolerate a p.o. challenge. Clinically looks well. She is not having any abdominal pain therefore I do not feel any imaging is indicated. Suspected possibly a viral gastroenteritis versus emesis related to . She will be given a prescription for Zofran. She is advised to push fluids. She does have a mild hypocalcemia and recommended she take a daily Tums. Lab Data Attestation: I reviewed the patient's lab results. Labs: Laboratory Results - last 24 hr 11/22/23 11/22/23 11/22/23 09:10 11:10 12:30 WBC 5.8 RBC 5.13 Hgb 16.3 H Hct 46.8 MCV 91.2 MCH 31.8 MCHC 34.8 RDW Std Deviation 40.6 RDW Coeff of Denita 12.2 Plt Count 220 MPV 10.0 Immature Gran % (Auto) 0.300 Neut % (Auto) 74.0 H Lymph % (Auto) 15.4 L [place] % (Auto) 9.4 Eos % (Auto) 0.2 Baso % (Auto) 0.7 Absolute Neuts (auto) 4.3 Absolute Lymphs (auto) 0.90 Nucleated RBC % 0 Sodium 128 L 135 L Potassium 4.2 3.9 Chloride 109 H 109 H Carbon Dioxide 13.0 L 18.0 L Anion Gap 6 8 BUN 18 16 Creatinine 0.97 0.70 Estim Creat Clear Calc 80.79 111.95 Est GFR (MDRD) Af Amer 81 118 Est GFR (MDRD) Non-Af 67 98 BUN/Creatinine Ratio 18.6 22.9 H Glucose 89 112 H Calcium 8.3 L 7.0 L Urine Color Gwen Urine Clarity Sl Cloudy Urine pH 6.0 Ur Specific [place] 1.010 Urine Protein 30 H Urine Glucose (UA) Normal Urine Ketones 5 H Urine Occult Blood Negative Urine Nitrite Negative Urine Bilirubin 3 H Urine Urobilinogen 1 H Ur Leukocyte Esterase 25 H Urine RBC 0-5 SEEN Urine WBC 0-5 SEEN Ur Squamous Epith Cells 0-5 SEEN Urine Bacteria RARE Urine Mucus RARE Discharge Plan Triage Chief Complaint: Nausea/Vomiting ED Provider: Cece Wilson Dx/Rx/DC Orders Clinical Impression: Hx of Sahil's disease, Vomiting, Dehydration, Hypocalcemia Instructions: ED Dehydration (Adult), ED Vomiting (Adult), ED Hypocalcemia (Adult) Prescriptions: New ondansetron [ondansetron] 4 mg tablet,disintegrating 4 mg PO Q8H PRN PRN (Reason: Nausea) Qty: 10 0RF No Action cholecalciferol (vitamin D3) 5,000 unit capsule 5,000 unit PO DAILY ProAir HFA 90 mcg/actuation HFA aerosol inhaler 1 puff INHALATION Q6H PRN (Reason: Asthma) hydrocortisone 5 mg tablet See Rx Instructions PO BID Qty: 540 1RF Rx Instructions: 10 mg breakfast, 10 mg afternoon, 5 mg evening. Take triple the dose for fever or acute illness fludrocortisone 0.1 mg tablet 0.1 mg PO DAILY PRN (Reason: Dehydration) Qty: 90 1RF ibuprofen 800 MG tablet 800 mg PO TID PRN PRN (Reason: Pain) Qty: 60 1RF Lamictal 200 mg PO BID cyanocobalamin (vitamin B-12) [Vitamin B-12] 500 mcg Tablet 500 mcg PO DAILY aripiprazole [Abilify] 10 mg tablet 15 mg PO DAILY betamethasone dipropionate 0.05 % lotion 1 applic topical DAILY PRN (Reason: itching) Qty: 60 0RF pantoprazole 40 mg tablet,delayed release (DR/EC) 40 mg PO DAILY Qty: 90 1RF levothyroxine 175 mcg tablet 175 mcg PO DAILY Qty: 90 1RF Primary Care Provider: Thania Matthews Referrals: Thania Matthews MD [Primary Care Provider] - 3-5 Days Disposition Disposition: Home, Self Care Discharge Date/Time: 11/22/23 13:26
[2023-11-22] MEDS: 0.9% Normal Saline (1000mL) 1,000 ML 1000 ML IV (09:24)
[2023-11-22] MEDS: dexAMETHasone 4 MG/ML Vial IV (09:25)
[2023-11-22] MEDS: Ondansetron 4 MG/2 ML Vial IV (09:25)
[2023-11-22 09:29] LABS: Absolute Neutrophil Count 4.3 X10^3/uL (2.0-7.7); Basophil# 0.04 X10^3/uL; Basophil% 0.7 % (0-1); Eosinophil# 0.01 X10^3/uL; Eosinophils% 0.2 % (0-5); Hematocrit 46.8 % (37-47); Hemoglobin 16.3 g/dL (12.0-15.0); Lymphocyte % 15.4 % (19-41); Mean Corp Hgb Conc 34.8 g/dL (32-36); Mean Corpuscular Hgb 31.8 pg (27.0-32.0); Mean Corpuscular Volume 91.2 fL (81-99); Monocyte# 0.55 X10^3/uL; Monocyte% 9.4 % (0-10); NRBC Flagged by Analyzer 0 % (0-5); Neutrophil # 4.32 X10^3/uL (2.7-7.7); Platelet Count 220 K/mm3 (150-450); RBC Distribution Width CV 12.2 % (11.6-14.6); RBC Distribution Width SD 40.6 fl (35.1-43.9); Red Blood Count 5.13 M/mm3 (4.2-5.4); White Blood Count 5.8 K/mm3 (4.4-11.0)
[2023-11-22 10:05] LABS: Anion Gap 6 (5-15); BUN 18 mg/dL (7-18); BUN/Creat Ratio 18.6 RATIO (10-20); Calcium,Total 8.3 mg/dL (8.5-10.1); Chloride 109 mmol/L (98-107); Creatinine, Serum 0.97 mg/dL (0.55-1.02); EST Glomerular Filtration Rate 67 mL/min (>60); Est Glom Filt Rate - Afr Amer 81 mL/min (>60); Estimated Creatinine Clearance 80.79 ml/min; Glucose 89 mg/dL (74-106); Potassium 4.2 mmol/L (3.5-5.1); Sodium Level 128 mmol/L (136-145)
[2023-11-22] MEDS: 0.9% Normal Saline (1000mL) 1,000 ML 150 ML IV ×2 (10:51→12:34)
[2023-11-22] MEDS: Acetaminophen 500 MG Tablet 1000 MG PO (11:03)
[2023-11-22] MEDS: 0.9% Normal Saline (1000mL) 1,000 ML 999 ML IV (11:04)
[2023-11-22 11:06] VITALS: BP 97/60; PULSE 117; O2SAT 97
[2023-11-22 11:16] LABS: Glucose, Dipstick Normal (Normal); Ketone-Dipstick 5 mg/dl (Negative); Leukocyte Esterase-Dipstick 25 /ul (Negative); Nitrite-Dipstick Negative (Negative); Occult Blood-Urine Negative /ul (Negative); Protein-Dipstick 30 mg/dl (Negative); Urine Urobilinogen 1 mg/dl (Normal)
[2023-11-22 11:23] LABS: Urine Bilirubin Dipstick 3 mg/dL (Negative)
[2023-11-22 11:24] LABS: Color, Urine Amber (Yellow); Urine Clarity Sl Cloudy (Clear)
[2023-11-22 11:28] LABS: Red Blood Cells-Urine 0-5 SEEN /hpf (0-5); Squamous Epithelial Cells - UA 0-5 SEEN /hpf (5-10)
[2023-11-22 11:29] LABS: Bacteria RARE /hpf (None Seen); Mucous, Urine RARE /hpf (<or=2+); White Blood Cells 0-5 SEEN /hpf (0-5)
[2023-11-22 13:01] LABS: Anion Gap 8 (5-15); BUN 16 mg/dL (7-18); BUN/Creat Ratio 22.9 RATIO (10-20); Chloride 109 mmol/L (98-107); EST Glomerular Filtration Rate 98 mL/min (>60); Est Glom Filt Rate - Afr Amer 118 mL/min (>60); Estimated Creatinine Clearance 111.95 ml/min; Glucose 112 mg/dL (74-106); Potassium 3.9 mmol/L (3.5-5.1); Sodium Level 135 mmol/L (136-145)
== END 2023-11-22 13:26 | disposition home or self-care (01) ==
PROVIDERS: Emergency Provider Emergency Medicine; PCP Internal Medicine; Visit Provider Emergency Medicine
DX: O21.1 Hyperemesis gravidarum with metabolic disturbance (principal); F31.30 Bipolar disorder, current episode depressed, mild or moderate severity, unspecified; E27.1 Primary adrenocortical insufficiency; E83.51 Hypocalcemia; O99.281 Endocrine, nutritional and metabolic diseases complicating pregnancy, first trimester; E86.0 Dehydration; O99.341 Other mental disorders complicating pregnancy, first trimester; Z3A.08 8 weeks gestation of pregnancy; Z79.52 Long term (current) use of systemic steroids; Z79.899 Other long term (current) drug therapy; Z87.891 Personal history of nicotine dependence
CPT/HCPCS: 80048; 81001; 85025; 96361; 96374; 96375; 99284; J7030; P9612; A4216; J2405

== ENCOUNTER → 2023-11-27 | Outpatient (CLI) | payer OTHER, SELFPAY ==
[2023-11-27 17:16] LABS: Thyroid Stim Hormone (TSH) 0.83 uIU/mL (0.358-3.74)
== END | disposition home or self-care (01) ==
LOC: BIMLAB 14:27
PROVIDERS: PCP Internal Medicine; Visit Provider Internal Medicine Endocrinology, Diabetes & Metabolism
DX: E03.8 Other specified hypothyroidism (principal); E06.3 Autoimmune thyroiditis
CPT/HCPCS: 36415; 84439; 84443

== ENCOUNTER 2023-12-13 09:00 | Outpatient (RCR) | payer OTHER, SELFPAY ==
[2023-11-29 09:00] VITALS: BP 112/70; PULSE 85; RESP 16; TEMP 35.7; BMI 25.8
--- NOTE | 2023-11-29 11:54 | HP.PCM_ITS ---
History of Present Illness Date of Service: 11/29/23 Chief Complaint: Follow-up on right wrist second-degree burn History of Wound: 43-year-old female that was making candy on the stove and it spilled on her right wrist area and developed a second-degree burn. Was seen in the emergency room but given Neosporin and Telfa pads. This happened last Monday. Patient still has pain in the right wrist and some slough in the base of the wound. Will debride and apply calcium alginate and have her follow-up in a week. She did is less than 1% burn on her body [facility] Medical History Adrenal disorder Adrenal insufficiency, primary, autoimmune Allergies Anemia Anxiety Anxiety and depression Asthma B12 deficiency Back pain Back problem Bilateral breast cysts Bipolar 1 disorder Breast lump Depression Elevated hematocrit Fibromyalgia Former smoker Frequent headaches Gastric reflux GERD (gastroesophageal reflux disease) H/O Sahil's disease H/O emotional problems History of steroid therapy Hypercholesterolemia Hypertriglyceridemia Hypocomplementemia Insomnia Leukopenia Neuropathy P-ANCA titer positive Pancreatic islet antibody positive Peripheral edema 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 Primary adrenal insufficiency Raynauds disease Restless legs Tension headache Thyroid disease Vegetarian diet Vision problems Vitamin D deficiency Wears dentures Wears glasses Home Medications albuterol sulfate 90 mcg/actuation aerosol inhaler (ProAir HFA) 1 puff inhalation Q6H PRN Asthma 11/26/18 [History Last Taken Unknown] cholecalciferol (vitamin D3) 125 mcg (5,000 unit) capsule 5,000 unit PO DAILY Check with primary doctor 11/26/18 [History Last Taken Unknown] Lamictal 200 mg PO BID Check with primary doctor 01/10/22 [History Last Taken 03/23/23] aripiprazole 10 mg tablet (Abilify) 15 mg PO DAILY 03/20/23 [History Last Taken Unknown] cyanocobalamin (vitamin B-12) 500 mcg tablet (Vitamin B-12) 500 mcg PO DAILY 03/20/23 [History Last Taken Unknown] pantoprazole 40 mg tablet,delayed release 40 mg PO DAILY #90 tabs 07/26/23 [Rx Last Taken Unknown] fludrocortisone 0.1 mg tablet 0.1 mg PO DAILY PRN Dehydration #90 tabs 09/29/23 [Rx Last Taken Unknown] hydrocortisone 5 mg tablet See Rx Instructions PO BID #540 tabs 09/29/23 [Rx Last Taken Unknown] levothyroxine 175 mcg tablet 175 mcg PO DAILY #90 tabs 10/26/23 [Rx Last Taken Unknown] PO 1XD 11/29/23 [History Last Taken Unknown] Allergy/AdvReac Type Severity Reaction Status Date / Time vortioxetine Allergy Mild Other Verified 11/29/23 09:10 [From Brintellix] nickel [Nickel] AdvReac Rash Verified 11/29/23 09:10 Penicillins AdvReac Abd Verified 11/29/23 09:10 cramps/diarrhea Family History Father Hyperlipidemia Hypertension Arthritis Cancer prostate Grandmother Hypertension Autoimmune disorder Breast cancer Cervical cancer Ovarian cancer Thyroid disorder Uterine cancer Grandfather Alcoholism Autoimmune disorder rheumatoid arthritis Diabetes Myocardial infarction CVA (cerebral vascular accident) Mother Anxiety Arthritis Depression Son Diabetes Brother Hypertension Other High cholesterol Surgical History delivery delivered H/O breast biopsy H/O rhinoplasty Hx laparoscopic cholecystectomy Social History household members: spouse and family current occupational status: unemployed 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 Smoking Status: Former smoker Electronic Cigarette Use: not used alcohol intake: never substance use type: does not use caffeine: Yes what type of physical activity do you participate in: none seatbelt use: always do you feel safe at home: Yes additional social history: [employer] 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 [employer] Constitutional Constitutional: Reports systems reviewed and no addt'l complaints, except as documented Eyes Eyes: Reports systems reviewed and no addt'l complaints, except as documented ENT HEENT: Reports systems reviewed and no addt'l complaints, except as documented Cardiovascular Cardiovascular: Reports systems reviewed and no addt'l complaints, except as documented Respiratory/Chest Respiratory/Chest: Reports systems reviewed and no addt'l complaints, except as documented Gastrointestinal Gastrointestinal: Reports systems reviewed and no addt'l complaints, except as d ocumented Genitourinary Genitourinary: Reports systems reviewed and no addt'l complaints, except as documented Musculoskeletal Musculoskeletal: Reports systems reviewed and no addt'l complaints, except as documented Integumentary Integumentary: Reports wounds and other Details: Open wound right wrist from burn old skin is off patient has slough in the base. Small area 1 cm circumference with hardly any depth Neurologic Neurologic: Reports systems reviewed and no addt'l complaints, except as documented Psychiatric Psychiatric: Reports systems reviewed and no addt'l complaints, except as documented Endocrine Endocrinology: Reports systems reviewed and no addt'l complaints, except as documented Hematologic/Lymphatic Hematologic/Lymphatic: Reports systems reviewed and no addt'l complaints, except as documented Allergic/Immunologic Allergic/Immunologic: Reports systems reviewed and no addt'l complaints, except as documented Vital Signs Vital Signs Vital Signs: 11/29/23 09:00 Temperature 96.3 F L Temperature Source Temporal Pulse Rate 85 Respiratory Rate 16 Blood Pressure 112/70 Blood Pressure Mean 84 Blood Pressure Source Monitor Blood Pressure Position Sitting Blood Pressure Location Left Arm Oxygen Delivery Method Room Air Weight Weight: 165 lb Body Mass Index (BMI) 25.8 Physical Exam Const oriented x3 General Appearance: cooperative Exam Limitations: no limitations HEENT normocephalic Head and Scalp: normal to inspection Face and Sinus: normal facial exam Nose: external nose normal General Ear: hearing grossly impaired External Ear: external ears normal Mouth: oral and palatal mucosa normal Eyes PERRL General Eye: normal appearance of both eyes Neck full ROM General: normal visual inspection Resp normal respiratory effort Effort and Inspection: able to speak in complete sentences Auscultation: clear to auscultation bilaterally Cardio regular rate and regular rhythm Palpation: normal PMI Rate: regular rate Rhythm: regular rhythm Back/Spine Cervical Spine: cervical ROM normal Thoracic Spine / Upper Back: normal to inspection Lumbar Spine / Lower Back: normal to inspection Extremity normal to inspection General Extremity: normal exam except as noted Skin Skin Narrative: Wound right wrist 1 cm [place] open area with slough and base Neuro oriented x3 Psych Appearance: grossly normal Speech: normal speech Thought Content: normal thought content Judgement: judgement good Debridement Note Debridement Note Wound debrided: Burn right wrist less than 1% Laterality: Right Type of Debridement: Excisional debridement Anesthesia Used: 5% Lidocaine Gel Depth: Down to and including healthy tissue Percentage of wound debrided: 100 Instrument Used: 3mm curette Tissue Removed: Slough and fibrin Severity: Fat Layer Exposed Amount of bleeding with debridement: Mild Bleeding Controlled with: Compression and gauze Patient tolerated procedure: Patient tolerated procedure well Post-Debridement Measurements and Additional Note: Post-Debridement Measurements/Treatment WC - Nurse 1 - General Ulcer Assessment Start: 11/29/23 09:00 Freq: Status: Active Protocol: SANJU Activity Type Activity Date Activity User E-sign Co-sign Detail Recorded Client Recorded Date Recorded By Document 11/29/23 09:00 [facility] Desktop 11/29/23 09:09 [facility] 11/29/23 09:00 WC - Today's Visit Information Type of service Initial Visit Arrival Mode Ambulatory Transfer Assistance None Accompanied by son Patient Identification Verified (Name & Yes ) Patient Requires Transmission-Based No Precautions Height and Weight Height 5 ft 7 in Weight 165 lb Weight in Pounds 165.0 lbs Weight Measurement Method Stated by Patient Body Mass Index (BMI) 25.8 BMI Classification Overweight BSA - Teressa 1.86 Vital Signs Temperature (97.8 F-99.1 F) 96.3 F L Temperature Source Temporal Pulse Rate (60-100) 85 Pulse Location Monitor Respiratory Rate (12-18) 16 Respiratory rate source Observation Oxygen Delivery Method Room Air Blood Pressure (90/60-120/80) 112/70 Blood Pressure Mean 84 Source Monitor Position Sitting Blood Pressure Location Left Arm History Since Last Visit- (Skip if this is Patient's initial visit) Left Footwear Regular Shoe Right Footwear Regular Shoe Pain Scale: 0-10 Numeric Is Patient Pain Free? Yes Communication Assessment Preferred language [place] Alterations Supervisor Required No Able to Read Yes Able to Write Yes Communication Tools None Right Hearing Abillity Normal Left Hearing Abillity Normal Visual Assistive Devices Glasses Teaching Assessment Preferences Verbal,Written, Audio/Visual, Demonstration Barriers to Learning None Readiness To Learn Excellent Willingness to Engage in Self Management High Activies Readiness to Engage in Self Management High Activities Anxiety Level Calm Cooperation Cooperative Perception Coherent Interest in Health Problem Asks Questions Education Importance Denies Need Does Patient Smoke tobacco or other No substances Smoking Status Former smoker Is Patient Diabetic No - Nurse 1 - General Ulcer Measurement Start: 11/29/23 09:00 Freq: Status: Active Protocol: Activity Type Activity Date Activity User E-sign Co-sign Detail Recorded Client Recorded Date Recorded By Document 11/29/23 09:00 [facility] [email or web address] 11/29/23 09:09 [facility] 11/29/23 09:00 Wound Center Nurse 1 #1- R WRIST -Combined with other wound No -Current Size (cm) - Length 1.1 -Current Size (cm) - Width 1.6 -Current Size (cm) - Depth 0.1 -Total Square Cm 1.76 -Date of Last Picture (Recall this 11/29/23 field) -Photo Taken Yes -Tunneling No -Undermining/Tunneling No -Circular Undermining No -Exudate Amt Medium -Exudate Type Serosanguineous -Wound Margin Distinct, Outline Attached -Granulation Amt Small (1-33%) -Granulation Quality Red -Slough/Fibrin Yes -Necrosis Amt Large (67-100%) -Necrotic Tissue Type Adherent Slough -Texture (Susan-wound Skin Appearance) Assessed, Scarring -Moisture (Susan-wound Skin Appearance) Assessed -Color (Susan-wound Skin Appearance) Assessed -Temperature (Susan-wound Skin No Abnormality Appearance) (Pt Warm) -Tenderness on Palpation (Susan-wound No Skin Appearance) -Ulcer Cleansing Soap and Water -Foul Odor after Cleansing No -Anesthetic Used 5% Lidocaine Gel WC - Nurse 2 - General Ulcer CM Notes Start: 11/29/23 09:00 Freq: Status: Active Protocol: Activity Type Activity Date Activity User E-sign Co-sign Detail Recorded Client Recorded Date Recorded By Document 11/29/23 09:36 [facility] Desktop 11/29/23 09:40 MW Edit Result 11/29/23 09:36 MW (1) [id number] 11/29/23 11:35 MW (1) #1- R WRIST - Dressing and/or Debridement Partial => Initial Thick Burn (small) 11/29/23 09:36 Wound Center Nurse 2 -Time 09:36 -Correct Patient Yes -Correct Side, Site, Position Yes -Correct Procedure Yes -Procedure Performed Yes -Type of Procedure Debridement -Clinical Debridement Subcutaneous -Tissue Removed Subcutaneous -Post Debridement (cm) - Length 1.0 -Post Debridement (cm) - Width 1.0 -Post Debridement (cm) - Depth 0.1 -Total Square (Post) (cm) 1.00 -Area of Debridement (cm) - Length 1.0 -Area of Debridement (cm) - Width 1.0 -Total Square (Area) (cm) 1.00 -Tunneling No -Undermining/Tunneling No -Circular Undermining No -Wound/Ulcer Outcome Not Healed -Ulcer Cleansing Rinsed/ Irrigated with Saline -Foul Odor after Cleansing No -Bioengineered Tissue No -Bleeding Controlled with Pressure -Treatment Response Procedure Tolerated Well -Offloading No -Total Non-Weight Bearing to Left Lower Extremity -Debridement - Subq, 1st 20sq cm Yes -Dressing and/or Debridement Partial Initial Thick Burn (small) Pain Scale: 0-10 Numeric Is Patient Pain Free? Yes - Nurse 3 - General Ulcer D/C NN Start: 11/29/23 09:00 Freq: Status: Active Protocol: Activity Type Activity Date Activity User E-sign Co-sign Detail Recorded Client Recorded Date Recorded By Document 11/29/23 09:51 [facility] Desktop 11/29/23 09:51 [facility] 11/29/23 09:51 Wound Care Center Nurse 3 #1- R WRIST -Ulcer Cleansing Rinsed/ Irrigated with Saline -Foul Odor after Cleansing No -Primary Dressing Applied Aquacel Extra, Mepilex Border -Aquacel Extra 1 -Mepilex Border 1 Treatment Response Procedure Tolerated Well Pain Scale: 0-10 Numeric Is Patient Pain Free? Yes WC - Visit Discharge Discharge Condition Stable Ambulatory Status Ambulatory Transportation Private Auto Accompanied by SON Assessment/Plan Assessment/Plan (1) Burn: CODE(S): T30.0 - Burn of unspecified body region, unspecified degree (2) Nonhealing nonsurgical wound: CODE(S): T14.8XXA - Other injury of unspecified body region, initial encounter (3) Nonhealing ulcer of upper extremity limited to breakdown of skin: CODE(S): L98.491 - Non-pressure chronic ulcer of skin of other sites limited to breakdown of skin PLAN: Wash skin with antibacterial soap and water such as Dial. Apply Aquacel extra to wound base moistened till turned to gel. Cover with absorbent dressing daily Follow-up in 1 week
[2023-12-06 08:52] VITALS: BP 112/72; PULSE 94; RESP 16; TEMP 36.1; BMI 25.8
--- NOTE | 2023-12-06 09:36 | PCM.WC.PN ---
History of Present Illness Date of Service: 12/06/23 Chief Complaint: Follow-up on right wrist second-degree burn History of Wound: 43-year-old female that was making candy on the stove and it spilled on her right wrist area and developed a second-degree burn. Was seen in the emergency room but given Neosporin and Telfa pads. This happened last Monday. Patient still has pain in the right wrist and some slough in the base of the wound. Will debride and apply calcium alginate and have her follow-up in a week. She did is less than 1% burn on her body Progress of Wound: Still has a area less than 1.0 cm surface opening on her right wrist , plantar side. Will try using Promogran with an Adaptic very dry. Subjective Subjective Patient is agreeable to plan Objective Data Objective Data No sign of infection no increase in pain edges are flat and well-approximated. Vital Signs: Vital Signs Temp Pulse Resp BP O2 Del Method 97 F L 94 16 112/72 Room Air 12/06/23 08:52 12/06/23 08:52 12/06/23 08:52 12/06/23 08:52 12/06/23 08:52 Oxygen Delivery Method Room Air Weight: 165 lb Body Mass Index (BMI) 25.8 Lab / Micro Data Attestation: I reviewed the patient's lab results. Physical Exam Const oriented x3 General Appearance: cooperative Exam Limitations: no limitations HEENT normocephalic Head and Scalp: normal to inspection Face and Sinus: normal facial exam Nose: external nose normal General Ear: hearing grossly impaired External Ear: external ears normal Mouth: oral and palatal mucosa normal Eyes PERRL General Eye: normal appearance of both eyes Neck full ROM General: normal visual inspection Resp normal respiratory effort Effort and Inspection: able to speak in complete sentences Auscultation: clear to auscultation bilaterally Cardio regular rate and regular rhythm Palpation: normal PMI Rate: regular rate Rhythm: regular rhythm Back/Spine Cervical Spine: cervical ROM normal Thoracic Spine / Upper Back: normal to inspection Lumbar Spine / Lower Back: normal to inspection Extremity normal to inspection General Extremity: normal exam except as noted Skin Skin Narrative: Wound right wrist [address] [facility] open area with slough and base Neuro oriented x3 Psych Appearance: grossly normal Speech: normal speech Thought Content: normal thought content Judgement: judgement good Debridement Note Debridement Note Wound debrided: Burn right wrist less than 1% Laterality: Right Type of Debridement: Excisional debridement Anesthesia Used: 5% Lidocaine Gel Depth: Down to and including healthy tissue Percentage of wound debrided: 100 Instrument Used: 3mm curette Tissue Removed: Slough and fibrin Severity: Fat Layer Exposed Amount of bleeding with debridement: Mild Bleeding Controlled with: Compression and gauze Patient tolerated procedure: Patient tolerated procedure well Post-Debridement Measurements and Additional Note: Post-Debridement Measurements/Treatment - Nurse 1 - General Ulcer Assessment Start: 11/29/23 09:00 Freq: Status: Active Protocol: [employer] Activity Type Activity Date Activity User E-sign Co-sign Detail Recorded Client Recorded Date Recorded By Document 11/29/23 09:[address] [facility] Desktop 11/29/23 09:[address] [facility] Document 12/06/23 08:[address] [facility] Desktop 12/06/23 08:[address] [facility] 11/29/23 12/06/23 09:00 08:52 - Today's Visit Information Type of service Initial Visit Follow-up Visit (Physician/EDUCATION ANALYST ) Arrival Mode Ambulatory Ambulatory Transfer Assistance None None Accompanied by son Patient Identification Verified (Name & Yes Yes ) Patient Requires Transmission-Based No No Precautions Height and Weight Height 5 ft 7 in Weight 165 lb Weight in Pounds 165.0 lbs Weight Measurement Method Stated by Patient Body Mass Index (BMI) 25.8 25.8 BMI Classification Overweight Overweight BSA - Teressa 1.86 Vital Signs Temperature (97.8 F-99.1 F) 96.3 F L 97 F L Temperature Source Temporal Temporal Pulse Rate (60-100) 85 94 Pulse Location Monitor Monitor Respiratory Rate (12-18) 16 16 Respiratory rate source Observation Monitor Oxygen Delivery Method Room Air Room Air Blood Pressure (90/60-120/80) 112/70 112/72 Blood Pressure Mean (mm Hg) 84 85 Source Monitor Monitor Position Sitting Sitting Blood Pressure Location Left Arm Right Arm History Since Last Visit- (Skip if this is Patient's initial visit) Have you changed medications since your No last visit? Any new allergies or adverse reactions No Had a fall/change in ADL's that may No increase risk of falls Signs or symptoms of abuse and/or No neglect since last visit Have you been in the hospital since your No last visit? Has dressing in place as prescribed Yes Has compression in place as prescribed N/A Has offloadiing in place as prescribed N/A Experienced any changes in pain level or No management Left Footwear Regular Shoe Regular Shoe Right Footwear Regular Shoe Regular Shoe Pain Scale: 0-10 Numeric Is Patient Pain Free? Yes Yes Communication Assessment Preferred language [place] Development Coach Required No Able to Read Yes Able to Write Yes Communication Tools None Right Hearing Abillity Normal Left Hearing Abillity Normal Visual Assistive Devices Glasses Teaching Assessment Preferences Verbal,Written, Audio/Visual, Demonstration Barriers to Learning None Readiness To Learn Excellent Willingness to Engage in Self Management High Activies Readiness to Engage in Self Management High Activities Anxiety Level Calm Cooperation Cooperative Perception Coherent Interest in Health Problem Asks Questions Education Importance Denies Need Does Patient Smoke tobacco or other No substances Smoking Status Former smoker Is Patient Diabetic No WC - Nurse 1 - General Ulcer Measurement Start: 11/29/23 09:00 Freq: Status: Active Protocol: Activity Type Activity Date Activity User E-sign Co-sign Detail Recorded Client Recorded Date Recorded By Document 11/29/23 09:00 [facility] Desktop 11/29/23 09:09 [facility] Document 12/06/23 08:52 [facility] Desktop 12/06/23 08:58 [employer] 11/29/23 12/06/23 09:00 08:52 Wound Center Nurse 1 #1- R WRIST -Combined with other wound No No -Current Size (cm) - Length 1.1 0.6 -Current Size (cm) - Width 1.6 1 -Current Size (cm) - Depth 0.1 0.1 -Total Square Cm 1.76 0.6 -Date of Last Picture (Recall this 11/29/23 12/06/23 field) -Photo Taken Yes Yes -Epithelialization Small 1-33% -Tunneling No No -Undermining/Tunneling No No -Circular Undermining No No -Exudate Amt Medium Medium -Exudate Type Serosanguineous Serosanguineous -Wound Margin Distinct, Distinct, Outline Outline Attached Attached -Granulation Amt Small (1-33%) Small (1-33%) -Granulation Quality Red Red -Slough/Fibrin Yes Yes -Necrosis Amt Large (67-100%) Large (67-100%) -Necrotic Tissue Type Adherent Slough Adherent Slough -Texture (Susan-wound Skin Appearance) Assessed, Assessed, Scarring Scarring -Moisture (Susan-wound Skin Appearance) Assessed Assessed -Color (Susan-wound Skin Appearance) Assessed Assessed -Temperature (Susan-wound Skin No Abnormality No Abnormality Appearance) (Pt Warm) (Pt Warm) -Tenderness on Palpation (Susan-wound No No Skin Appearance) -Ulcer Cleansing Soap and Water Soap and Water -Foul Odor after Cleansing No No -Anesthetic Used 5% Lidocaine 5% Lidocaine Gel Gel WC - Nurse 2 - General Ulcer CM Notes Start: 11/29/23 09:00 Freq: Status: Active Protocol: Activity Type Activity Date Activity User E-sign Co-sign Detail Recorded Client Recorded Date Recorded By Document 11/29/23 09:36 MW Desktop 11/29/23 09:40 MW Edit Result 11/29/23 09:36 MW (1) [id number] 11/29/23 11:35 MW Document 12/06/23 09:07 MW Desktop 12/06/23 09:09 MW (1) #1- R WRIST - Dressing and/or Debridement Partial => Initial Thick Burn (small) 11/29/23 12/06/23 09:36 09:07 Wound Center Nurse 2 #1- R WRIST -Time 09:36 09:08 -Correct Patient Yes Yes -Correct Side, Site, Position Yes Yes -Correct Procedure Yes Yes -Procedure Performed Yes Yes -Type of Procedure Debridement Debridement -Clinical Debridement Subcutaneous Subcutaneous -Tissue Removed Subcutaneous Subcutaneous -Post Debridement (cm) - Length 1.0 0.8 -Post Debridement (cm) - Width 1.0 0.7 -Post Debridement (cm) - Depth 0.1 0.7 -Total Square (Post) (cm) 1.00 0.56 -Area of Debridement (cm) - Length 1.0 0.8 -Area of Debridement (cm) - Width 1.0 0.7 -Total Square (Area) (cm) 1.00 0.56 -Tunneling No No -Undermining/Tunneling No No -Circular Undermining No No -Wound/Ulcer Outcome Not Healed Not Healed -Ulcer Cleansing Rinsed/ Rinsed/ Irrigated with Irrigated with Saline Saline -Foul Odor after Cleansing No No -Bioengineered Tissue No No -Bleeding Controlled with Pressure Pressure -Treatment Response Procedure Procedure Tolerated Well Tolerated Well -Offloading No No -Total Non-Weight Bearing to Left Lower Extremity -Debridement - Subq, 1st 20sq cm Yes Yes -Dressing and/or Debridement Partial Initial Thick Burn (small) Pain Scale: 0-10 Numeric Is Patient Pain Free? Yes Yes - Nurse 3 - General Ulcer D/C NN Start: 11/29/23 09:00 Freq: Status: Active Protocol: Activity Type Activity Date Activity User E-sign Co-sign Detail Recorded Client Recorded Date Recorded By Document 11/29/23 09:[address] [facility] Desktop 11/29/23 09:51 [employer] Document 12/06/23 09:[address] [facility] Desktop 12/06/23 09:[address] [facility] 11/29/23 12/06/23 09:51 09:14 Wound Care Center Nurse 3 #1- R WRIST -Ulcer Cleansing Rinsed/ Rinsed/ Irrigated with Irrigated with Saline Saline -Foul Odor after Cleansing No No -Primary Dressing Applied Aquacel Extra, Mepilex Border, Mepilex Border NonAdherent Contact Layer, Promogran -Other Dressing DRSG PER DL LEGAL COLLECTOR -Aquacel Extra 1 -Mepilex Border 1 1 -Promogran 1 Treatment Response Procedure Procedure Tolerated Well Tolerated Well Pain Scale: 0-10 Numeric Is Patient Pain Free? Yes Yes WC - Visit Discharge Discharge Condition Stable Stable Ambulatory Status Ambulatory Ambulatory Transportation Private Auto Private Auto Accompanied by SON Assessment/Plan Assessment/Plan (1) Burn: CODE(S): T30.0 - Burn of unspecified body region, unspecified degree (2) Nonhealing nonsurgical wound: CODE(S): T14.8XXA - Other injury of unspecified body region, initial encounter (3) Nonhealing ulcer of upper extremity limited to breakdown of skin: CODE(S): L98.491 - Non-pressure chronic ulcer of skin of other sites limited to breakdown of skin PLAN: Wash skin with antibacterial soap and water such as Dial. Apply Promogran to wound base moistened till turned to gel cover with Adaptic then Cover with absorbent dressing daily Follow-up in 1 week
[2023-12-13 08:52] VITALS: BP 112/73; PULSE 96; RESP 16; TEMP 36.3; BMI 25.8
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
== END 2023-12-13 23:59 | disposition home or self-care (01) ==
LOC: WC 09:00
PROVIDERS: PCP Internal Medicine; Referring Provider Family Medicine; Visit Provider Nurse Practitioner
DX: L98.492 Non-pressure chronic ulcer of skin of other sites with fat layer exposed (principal); L98.491 Non-pressure chronic ulcer of skin of other sites limited to breakdown of skin; Z87.891 Personal history of nicotine dependence; T23.271D Burn of second degree of right wrist, subsequent encounter; T31.0 Burns involving less than 10% of body surface; X10.1XXD Contact with hot food, subsequent encounter
CPT/HCPCS: 11042; 16020; 99203; 99213; G0463

== ENCOUNTER → 2024-01-30 | Outpatient (CLI) | payer OTHER, SELFPAY ==
[2024-01-30 16:54] LABS: T4 Free Direct 1.01 ng/dL (0.76-1.46); Thyroid Stim Hormone (TSH) 0.96 uIU/mL (0.358-3.74)
== END | disposition home or self-care (01) ==
PROVIDERS: PCP Internal Medicine; Visit Provider Internal Medicine Endocrinology, Diabetes & Metabolism
DX: E03.8 Other specified hypothyroidism (principal); E06.3 Autoimmune thyroiditis
CPT/HCPCS: 36415; 84439; 84443

== ENCOUNTER → 2024-02-21 | Outpatient (CLI) | payer OTHER, SELFPAY ==
[2024-02-21 12:13] LABS: Absolute Lymphocyte Count 2.08 X10^3/uL (0.83-4.51); Absolute Neutrophil Count 3.6 X10^3/uL (2.0-7.7); Basophil# 0.03 X10^3/uL; Basophil% 0.5 % (0-1); Eosinophil# 0.02 X10^3/uL; Eosinophils% 0.3 % (0-5); Hematocrit 38.1 % (37-47); Hemoglobin 13.1 g/dL (12.0-15.0); Lymphocyte # 2.08 X10^3/ul (0.83-4.51); Lymphocyte % 31.9 % (19-41); Mean Corp Hgb Conc 34.4 g/dL (32-36); Mean Platelet Vol. 10.4 fl (6.2-12.0); Monocyte# 0.72 X10^3/uL; NRBC Flagged by Analyzer 0 % (0-5); Neutrophil # 3.63 X10^3/uL (2.7-7.7); Neutrophil % 55.5 % (47-70); Platelet Count 267 K/mm3 (150-450); RBC Distribution Width CV 15.6 % (11.6-14.6); RBC Distribution Width SD 54.8 fl (35.1-43.9); Red Blood Count 3.85 M/mm3 (4.2-5.4); White Blood Count 6.5 K/mm3 (4.4-11.0)
[2024-02-21 12:32] LABS: Vitamin B12 327 pg/mL (211-911); Vitamin D,25 Hydroxy 54.3 ng/mL
[2024-02-21 13:03] LABS: ALB/GLOB Ratio 0.8 RATIO (0.9-2.4); AST(SGOT) 15 U/L (15-37); Alanine Aminotransfer ALT/SGPT 15 U/L (13-56); Albumin, Serum 2.8 g/dL (3.2-5.0); Alkaline Phosphatase 57 U/L (45-117); Anion Gap 5 (5-15); BUN 7 mg/dL (7-18); BUN/Creat Ratio 11.1 RATIO (10-20); Calcium,Total 8.8 mg/dL (8.5-10.1); Chloride 106 mmol/L (98-107); Cholesterol 176 mg/dL (200); Creatinine, Serum 0.63 mg/dL (0.55-1.02); EST Glomerular Filtration Rate 110 mL/min (>60); Est Glom Filt Rate - Afr Amer 133 mL/min (>60); Globulin 3.3 g/dL (2.2-4.2); Glucose 80 mg/dL (74-106); High Density Lipoprotein 48 mg/dL; Potassium 4.3 mmol/L (3.5-5.1); Protein, Total 6.1 g/dL (6.4-8.2); Sodium Level 135 mmol/L (136-145); Triglycerides 164 mg/dL; Very Low Density Lipoprotein 33 mg/dL (5-40)
[2024-02-21 13:45] LABS: Hemoglobin A1c 4.6 % (3.8-5.6)
== END | disposition home or self-care (01) ==
LOC: BIMLAB 08:36
PROVIDERS: PCP Internal Medicine; Referring Provider Internal Medicine; Visit Provider Internal Medicine
DX: E55.9 Vitamin D deficiency, unspecified (principal); F31.9 Bipolar disorder, unspecified; E53.8 Deficiency of other specified B group vitamins
CPT/HCPCS: 36415; 80053; 80061; 82306; 82607; 83036; 85025

== ENCOUNTER → 2024-04-11 | Outpatient (CLI) | payer OTHER, SELFPAY ==
[2024-04-11 16:19] LABS: Anion Gap 5 (5-15); BUN 8 mg/dL (7-18); BUN/Creat Ratio 12.8 RATIO (10-20); Calcium,Total 8.6 mg/dL (8.5-10.1); Chloride 105 mmol/L (98-107); Creatinine, Serum 0.63 mg/dL (0.55-1.02); EST Glomerular Filtration Rate 111 mL/min (>60); Est Glom Filt Rate - Afr Amer 134 mL/min (>60); Glucose 108 mg/dL (74-106); Potassium 3.9 mmol/L (3.5-5.1); Sodium Level 133 mmol/L (136-145); T4 Free Direct 0.93 ng/dL (0.76-1.46); Thyroid Stim Hormone (TSH) 4.74 uIU/mL (0.358-3.74)
== END | disposition home or self-care (01) ==
LOC: BIMLAB 14:34
PROVIDERS: PCP Internal Medicine; Visit Provider Internal Medicine Endocrinology, Diabetes & Metabolism
DX: Z34.90 Encounter for supervision of normal pregnancy, unspecified, unspecified trimester (principal); E27.1 Primary adrenocortical insufficiency; E31.0 Autoimmune polyglandular failure; E03.9 Hypothyroidism, unspecified
CPT/HCPCS: 36415; 80048; 84439; 84443

== ENCOUNTER → 2024-05-20 | Outpatient (CLI) | payer OTHER, SELFPAY ==
[2024-05-20 13:20] LABS: ALB/GLOB Ratio 0.8 RATIO (0.9-2.4); AST(SGOT) 14 U/L (15-37); Alanine Aminotransfer ALT/SGPT 12 U/L (13-56); Albumin, Serum 2.7 g/dL (3.2-5.0); Alkaline Phosphatase 61 U/L (45-117); Anion Gap 7 (5-15); BUN 6 mg/dL (7-18); BUN/Creat Ratio 8.2 RATIO (10-20); Calcium,Total 8.8 mg/dL (8.5-10.1); Chloride 106 mmol/L (98-107); Creatinine, Serum 0.73 mg/dL (0.55-1.02); EST Glomerular Filtration Rate 93 mL/min (>60); Est Glom Filt Rate - Afr Amer 113 mL/min (>60); Globulin 3.6 g/dL (2.2-4.2); Glucose 85 mg/dL (74-106); Potassium 4.3 mmol/L (3.5-5.1); Protein, Total 6.3 g/dL (6.4-8.2); Sodium Level 136 mmol/L (136-145); T4 Free Direct 1.17 ng/dL (0.76-1.46); Thyroid Stim Hormone (TSH) 1.93 uIU/mL (0.358-3.74)
== END | disposition home or self-care (01) ==
LOC: BIMLAB 10:58
PROVIDERS: PCP Internal Medicine; Visit Provider Internal Medicine Endocrinology, Diabetes & Metabolism
DX: E03.8 Other specified hypothyroidism (principal); E27.1 Primary adrenocortical insufficiency; E06.3 Autoimmune thyroiditis
CPT/HCPCS: 36415; 80053; 84439; 84443

== ENCOUNTER 2024-06-26 09:43 | Inpatient (IN) | payer OTHER, SELFPAY ==
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
[2024-06-26] VITALS (16 sets, daily range): BP systolic 83–121; BP diastolic 57–93; PULSE 67–100; RESP 14–20; TEMP 36.6–37.2; O2SAT 97–100; BMI 34.9
[2024-06-26] MEDS: Lactated Ringers 1,000 ML 999 ML IV (10:00)
[2024-06-26 10:25] LABS: Absolute Neutrophil Count 4.3 X10^3/uL (2.0-7.7); Basophil# 0.02 X10^3/uL; Basophil% 0.3 % (0-1); Eosinophil# 0.01 X10^3/uL; Eosinophils% 0.1 % (0-5); Hematocrit 39.1 % (37-47); Hemoglobin 14.2 g/dL (12.0-15.0); Lymphocyte % 25.1 % (19-41); Mean Corp Hgb Conc 36.3 g/dL (32-36); Mean Corpuscular Hgb 35.9 pg (27.0-32.0); Mean Platelet Vol. 11.1 fl (6.2-12.0); Monocyte# 0.74 X10^3/uL; Monocyte% 10.9 % (0-10); NRBC Flagged by Analyzer 0 % (0-5); Neutrophil # 4.28 X10^3/uL (2.7-7.7); Neutrophil % 63.2 % (47-70); Platelet Count 173 K/mm3 (150-450); RBC Distribution Width CV 13.1 % (11.6-14.6); RBC Distribution Width SD 46.9 fl (35.1-43.9); Red Blood Count 3.95 M/mm3 (4.2-5.4); White Blood Count 6.8 K/mm3 (4.4-11.0)
[2024-06-26] MEDS: Lactated Ringers 1,000 ML 150 ML IV (10:49)
[2024-06-26 10:58] LABS: Syphilis Antibodies Non-reactive
[2024-06-26] MEDS: Cefazolin 2 GM in 0.9% Normal Saline (100mL Bag) 100 ML IV (12:00)
--- NOTE | 2024-06-26 12:14 | EX.PCM.OBRPT ---
Maternal Data Information SUNITHA Calculator Estimated Delivery Date Method Current WG Current Estimate 06/24/24 LMP (Uncertain) 40w 2d Final SUNITHA: 06/30/24 Gestational age: 39 3/7 Details Operative Information Date of Procedure: 06/26/24 Pre-Operative Diagnosis: previous c/s Post-Operative Diagnosis: same Indications for : Repeat Elective Classification: Scheduled Procedure Type: low transverse web marketing specialist #1: Isrrael Costello Type of Anesthesia: Spinal Anesthesiologist: Noe Medina Special Medications: duramorph Antibiotic Given: Ancef 2 grams IV x1 Drain: Chambers to straight drain Estimated Blood Loss: 800 Fluids Replaced: 1250 Procedure Start Time: 12:29 Procedure Stop Time: 13:02 Time of Delivery: 12:33 Findings Description of Procedure: The patient was taken to the operating room. She was prepped and draped in the dorsal supine position with a leftward tilt. A Pfannenstiel skin incision was made approximately 2 cm above the symphysis pubis and carried through to underlying layer fascia with the scalpel. The fascia was incised incised in the midline and extended laterally with the Rosario scissors. The fascia was dissected off the rectus muscles with blunt and sharp dissection. The rectus muscles were in the midline and the peritoneum was entered bluntly. The peritoneal incision was stretched and the [place] O retractor was placed. The uterine incision was made in a low transverse fashion with the scalpel and extended superiorly and inferiorly with blunt dissection. The amniotic membranes were ruptured bluntly and clear amniotic fluid returned. The was complete breech. The buttocks were brought out through the incision and the baby was turned to back up the legs were swept out individually then the arms and the head delivered with gentle fundal pressure in a flexed position without any traction. The mouth and nares were bulb suctioned. The cord was clamped and cut as the was stimulated. Cord clamping was delayed. The infant was handed off to the waiting nursing staff. The placenta was delivered with fundal massage and gentle traction in the standard fashion. The uterus was left in situ and cleared of all clots and debris. The cervix was dilated with a ring forcep. The uterine incision was closed with #1 Vicryl in a running locked fashion. A second layer the same suture was used to obtain hemostasis along with 1-0 Vicryl [id number] sutures along the left side of the incision. The incision was examined and was found to be hemostatic. Some Heema blast was placed over the incision. The [place] O retractor was removed. The rectus muscles were examined and any bleeding was Bovie cauterized. The parietal peritoneum and rectus muscles were closed en bloc with an 0 Vicryl running suture. Some Heema blast was placed over the rectus muscles. The rectus fascia was examined and any bleeding was Bovie cauterized and the rectus fascia was closed with #1 PDS suture in a running standard fashion. The subcutaneous tissue was examining and any bleeding was Bovie cauterized and some Heema blast was placed prophylactically in this layer. The subcutaneous tissue was reapproximated with 3-0 Vicryl suture. The skin was closed in a subcuticular fashion by the CLINICAL SOCIAL WORK THERAPIST with me present in the labor and delivery suite. I performed the remainder of the procedure with assistance. All sponge, lap, and needle counts were correct. The patient was taken to her room for recovery in a stable condition. Presentation: Positive for Complete Breech Amniotic Membrane Rupture Type: Artificial Amniotic Fluid Description: Clear Placental Delivery Description: Expressed Placenta Disposition: Sent to Pathology Cord Vessel Description: 3 Vessels Cord Entanglement: Around neck x 1, loose Nuchal Cord Compression: Without compression Infant A Gender: Female (Hellen Ortiz) (1 minute): 8 (5 minute): 9 Delayed Cord Clamping: Yes Complications Complications: none
--- NOTE | 2024-06-26 12:30 | PLAC_PTH ---
PATIENT: GET PORTER LOC: [facility] U#:[id number] AGE/SX: 43/F ROOM: WP009 RE06/26/[address]: Dr. Apurva Banks MD : 1980 BED: 1 DIS: 06/27/2024 SPEC #: [id number] RECD: 06/27/24 02:30 STATUS: INDERJIT RECrow #: [id number] DARIO: 06/26/24 12:[address]: Apurva Banks DEPT: SURGICAL PATHOLOGY RECD BY: Perla Loera ENTERED: 06/27/24 09:14 SP TYPE: PLACENTA OTHR DR: Dr. Thania Matthews MD Tissues: Placenta, NOS Procedures: Surgery Specimen Level V HEADER OPERATION: Repeat section PRE-OP DIAGNOSIS: Advanced maternal age TISSUE SUBMITTED: Placenta MICROSCOPIC DIAGNOSIS Placenta: Placental disc - third trimester placenta (658 gm). Focal area of intraparenchymal hemorrhage (1.5cm in greatest dimension). Membranes - no pathologic diagnosis. Umbilical cord - three blood vessels and no pathologic diagnosis. SJ: 07/01/2024 MICROSCOPIC DESCRIPTION Slides are reviewed. GROSS DESCRIPTION SPECIMEN: PLACENTA / CLINICAL INFORMATION: A. Weight: 3.77kg B. Gestational Age:39 weeks C. Sex: Female PLACENTAL WEIGHT (POST FIXATION): 658 gm PLACENTAL DIMENSIONS: 24.0 x 19.0 x 3.0 cm PLACENTAL SHAPE: Usual ovoid PLACENTAL WEIGHT FOR GESTATIONAL AGE: Over 99th percentile MEMBRANES - Present A. Insertion: Marginal B. Site of rupture from edge: 10.0 cm from edge of placental disc C. Color of membrane: Alberts-hazel D. Abnormalities: None UMBILICAL CORD - Present A. Color: Alberts-hazel B. Insertion: Paracentral C. Length: 22.0 cm D. Diameter: 1.0 cm E. Number of vessels: Three F. Abnormalities: None PLACENTAL DISC - Present A. Color of surface: Alberts-hazel B. surface abnormalities: None C. Maternal cotyledons: Intact with minimal tears D. Attached retro placental clot: Scant amount of retro placental clots are noted. E. Cut surface: Dark red and spongy F. Lesions: A alberts indurated lesion 1.5cm in greatest dimension G. Separate clot: Absent SECTIONS SUBMITTED: Dr. Carson (6 cassettes) 1. Membrane roll 2. Cord, maternal end 3. Cord, end 4. Placental disc, and maternal surfaces, lesion 5. Placental disc, and maternal surfaces 6. Placental disc, and maternal surfaces MELBA/ 06/28/2024 TC:5 CPT: 92445
[2024-06-26] MEDS: Oxytocin 15 Units/NS 250ml 15 UNITS/250 ML IV.SOLN 83 UNITS IV (13:30)
[2024-06-26] MEDS: Lactated Ringers 1,000 ML 100 ML IV (13:30)
[2024-06-26] MEDS: Acetaminophen 500 MG Tablet 1000 MG PO ×2 (13:53→20:17)
[2024-06-26] MEDS: Hydrocortisone Sod Succinate 100 MG/2 ML Vial IV (13:56)
[2024-06-26] MEDS: Ketorolac 30 MG/ML Syringe IV ×2 (14:56→21:28)
[2024-06-26] MEDS: Hydrocortisone 10 MG Tablet PO (17:31)
--- NOTE | 2024-06-26 19:03 | NURSING ---
IV is in the L. hand not the R. hand.
[2024-06-26] MEDS: Enoxaparin 40 MG/0.4 ML Syringe SC (23:56)
[2024-06-26] MEDS: lamoTRIgine 100 MG Tablet 200 MG PO (23:56)
[2024-06-27 00:04] VITALS: BP 101/63; PULSE 65; RESP 16; TEMP 36.1; O2SAT 97
[2024-06-27] MEDS: Acetaminophen 500 MG Tablet 1000 MG PO ×3 (02:18→14:00)
[2024-06-27 02:32] LABS: Pathology Specimen OB SEE PATHOLOGY REPORT
[2024-06-27] MEDS: Ketorolac 30 MG/ML Syringe IV ×2 (03:50→10:09)
[2024-06-27] MEDS: 0.9% Saline Lock 10 ML Syringe IV (03:50)
[2024-06-27 03:59] VITALS: BP 115/64; PULSE 71; RESP 16; O2SAT 98
[2024-06-27] MEDS: Levothyroxine 175 MCG Tablet PO (06:03)
[2024-06-27 06:25] LABS: Hematocrit 35.2 % (37-47); Hemoglobin 12.4 g/dL (12.0-15.0); Mean Corp Hgb Conc 35.2 g/dL (32-36); Mean Corpuscular Hgb 35.7 pg (27.0-32.0); Mean Corpuscular Volume 101.4 fL (81-99); Platelet Count 133 K/mm3 (150-450); RBC Distribution Width CV 13.3 % (11.6-14.6); RBC Distribution Width SD 48.5 fl (35.1-43.9); Red Blood Count 3.47 M/mm3 (4.2-5.4); White Blood Count 9.7 K/mm3 (4.4-11.0)
--- NOTE | 2024-06-27 06:57 | PN.OBGYN_ITS ---
Subjective Subjective Feels good. Ambulating without difficulty. Voiding but does not have the sensation to void. Mild lochia. Bottle feeding. Objective Data Objective Data Vital Signs: Vital Signs Temp Pulse Resp BP Pulse Ox O2 Del Method 97.0 F L 71 16 115/64 98 Room Air 06/27/24 00:04 06/27/24 03:59 06/27/24 03:59 06/27/24 03:59 06/27/24 03:59 06/27/24 03:59 Oxygen Delivery Method Room Air Weight: 101 kg Body Mass Index (BMI) 34.9 Intake & Output: Intake and Output for Last 24 Hours 06/25/24 06/26/24 06/27/24 23:59 23:59 23:59 Intake Total 3192.5 / 3192.5 Output Total 2520 / 2520 100 / 100 Balance 672.5 / 672.5 -100 / -100 Lab / Micro Data 06/27/24 06:10 Labs: Laboratory Results - last 24 hr 06/26/24 10:00: WBC 6.8, RBC 3.95 L, Hgb 14.2, Hct 39.1, MCV 99.0, MCH 35.9 H, M CHC 36.3 H, RDW Std Deviation 46.9 H, RDW Coeff of Denita 13.1, Plt Count 173, MPV 11.1, Immature Gran % (Auto) 0.400, Neut % (Auto) 63.2, Lymph % (Auto) 25.1, M brenda % (Auto) 10.9 H, Eos % (Auto) 0.1, Baso % (Auto) 0.3, Absolute Neuts (auto) 4.3, Absolute Lymphs (auto) 1.70, Nucleated RBC % 0, Syphilis Total Ab Non- reactive, Blood Type O POSITIVE, Antibody Screen NEGATIVE 06/27/24 06:10: WBC 9.7, RBC 3.47 L, Hgb 12.4, Hct 35.2 L, MCV 101.4 H, MCH 35.7 H, MCHC 35.2, RDW Std Deviation 48.5 H, RDW Coeff of Denita 13.3, Plt Count 133 L, MPV 11.0 ROS Constitutional Constitutional: Denies fatigue, fever(s) or malaise Eyes Eyes: Denies change in vision ENT HEENT: Denies dizziness or headache(s) Cardiovascular Cardiovascular: Denies chest pain, dyspnea or lightheadedness Respiratory/Chest Respiratory/Chest: Denies cough or dyspnea Gastrointestinal Gastrointestinal: Denies change in bowel habits Genitourinary Genitourinary: Denies burning urination or genital lesions Integumentary Integumentary: Denies rash Neurologic Neurologic: Denies confusion, dizziness, headache(s), numbness or weakness Physical Exam Const alert General Appearance: cooperative GI GI Narrative: soft, moderate distention, fundus firm, appropriately tender. 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
--- NOTE | 2024-06-27 07:00 | PCM.DC.SUM ---
Providers Date of Admission: 06/26/24 Date of Discharge: 06/27/24 Primary Care Physician: Dr. 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 Qualified Code(s): E03.8 - Other specified hypothyroidism; E06.3 - Autoimmune thyroiditis (5) History of bipolar disorder: Status: Acute Code(s): Z86.59 - Personal history of other mental and behavioral disorders (6) S/P : Status: Acute Code(s): Z98.891 - History of uterine scar from previous surgery Plan Discharge home this afternoon Medications at Discharge Home Medications albuterol sulfate 90 mcg/actuation aerosol inhaler (ProAir HFA) 1 puff inhalation Q6H PRN Asthma 11/26/18 cholecalciferol (vitamin D3) 125 mcg (5,000 unit) capsule 5,000 unit PO DAILY Check with primary doctor 11/26/18 1 tab PO 1XD SUPPLEMENT 11/29/23 aripiprazole 15 mg tablet 15 mg PO DAILY ANXIETY 12/18/23 lamotrigine 200 mg tablet 200 mg PO BID BIPOLAR 12/18/23 docusate sodium 100 mg capsule (Colace) 100 mg PO DAILY STOOL SOFTENER 02/05/24 psyllium husk 0.4 gram capsule (Metamucil) 0.4 g PO DAILY SUPPLEMENT 02/05/24 fludrocortisone 0.1 mg tablet 0.1 mg PO DAILY PRN Dehydration #90 tabs 03/05/24 mecobalamin (vitamin B12) 1,000 mcg chewable tablet 1,000 mcg PO DAILY SUPPLEMENT 03/18/24 pantoprazole 40 mg tablet,delayed release 40 mg PO DAILY GERD #90 tabs 05/22/24 hydrocortisone 5 mg tablet See Rx Instructions PO BID ADDISONS DISEASE #540 tabs 06/18/24 levothyroxine 175 mcg tablet 175 mcg PO QDAY THYROID #90 tabs 06/18/24 Hospital Course Operations section Procedures None Summary of Care Provided Minutes Spent on Discharge: 22 Hospital Course: Scheduled repeat . Uncomplicated delivery. Slow return to void post op. Amelia's managed with steroids. Physical Exam Const alert General Appearance: cooperative GI GI Narrative: soft, moderate distention, fundus firm, appropriately tender. Abdominal bandage clean dry and intact Weight / BMI Weight Weight: 101 kg Body Mass Index (BMI) 34.9 ABG / Lab / Microbiology Data 06/27/24 06:10 Laboratory: Laboratory Results - last 24 hr 06/26/24 10:00: WBC 6.8, RBC 3.95 L, Hgb 14.2, Hct 39.1, MCV 99.0, MCH 35.9 H, MCHC 36.3 H, RDW Std Deviation 46.9 H, RDW Coeff of Denita 13.1, Plt Count 173, MPV 11.1, Immature Gran % (Auto) 0.400, Neut % (Auto) 63.2, Lymph % (Auto) 25.1, [place] % (Auto) 10.9 H, Eos % (Auto) 0.1, Baso % (Auto) 0.3, Absolute Neuts (auto) 4.3, Absolute Lymphs (auto) 1.70, Nucleated RBC % 0, Syphilis Total Ab Non-reactive, Blood Type O POSITIVE, Antibody Screen NEGATIVE 06/27/24 06:10: WBC 9.7, RBC 3.47 L, Hgb 12.4, Hct 35.2 L, MCV 101.4 H, MCH 35.7 H, MCHC 35.2, RDW Std Deviation 48.5 H, RDW Coeff of Denita 13.3, Plt Count 133 L, MPV 11.0 D/C Instructions Discharge Diet: No restrictions May resume sexual activity in: 4-6 weeks Lifting Restrictions: 20 pounds Additional Activity Instructions: Nothing in the vagina for 4-6 weeks. You may return to work/school in 6 weeks. Call your doctor if your incision/area has: Continuous Slow Oozing, Sudden Increased Bleeding, Increased Pain/ Swelling, Increased Redness and Foul Smelling Discharge Call your doctor if you observe: Fever of 101 or Higher and Using more than 1 pad per hour (for 2 hours) Suture Line Care: Avoid Pulling/Pushing and Avoid Pinching/Bending Cleanse incision/area with: Keep Dressing Clean & Dry Please Follow Up With: Apurva Banks MD When: Call to make an appointment for an incision check in 1-2 [phone]. You will need a post check in 6 weeks. Meaningful Use Info Meaningful Use Meaningful Use Diagnoses (Choose all that apply): None applicable Ischemic Stroke Statin Dosing Therapy Reference: STATIN DOSE THERAPY REFERENCE: * Patients > 75 years receive moderate or high dose statin therapy. * Patients 75 years or YOUNGER should receive HIGH intensity statin dose unless contraindicated. You will be required to document reason for non-treatment if statin daily dose does not meet guidelines. HIGH DOSE STATIN THERAPY DAILY Atorvastatin > than or = to 40 mg Rosuvastatin > than or = to 20 mg Amlodipine + Atorvastatin > than or = to 2.5/40 mg Ezetimibe + Simvastatin 10/80 mg Simvastatin 80mg Discharge Plan Admission Admit Date/Time: 06/26/24 09:43 Primary Reason for Your Visit: repeat Attending Provider: Apurva Banks Primary Care Provider: Thania Matthews Discharge Orders/Prescriptions Prescriptions: Continued cholecalciferol (vitamin D3) 5,000 unit capsule 5,000 unit PO DAILY ProAir HFA 90 mcg/actuation HFA aerosol inhaler 1 puff INHALATION Q6H PRN (Reason: Asthma) lamotrigine 200 mg tablet 200 mg PO BID aripiprazole 15 mg tablet 15 mg PO DAILY mecobalamin (vitamin B12) 1,000 mcg tablet,chewable 1,000 mcg PO DAILY docusate sodium [Colace] 100 mg capsule 100 mg PO DAILY psyllium husk [Metamucil] 0.4 gram capsule 0.4 g PO DAILY hydrocortisone 5 mg tablet See Rx Instructions PO BID Qty: 540 1RF Rx Instructions: 10 mg breakfast, 10 mg afternoon, 5 mg evening. Take triple the dose for fever or acute illness levothyroxine 175 mcg tablet 175 mcg PO QDAY Qty: 90 3RF 1 tab PO 1XD fludrocortisone 0.1 mg tablet 0.1 mg PO DAILY PRN (Reason: Dehydration) Qty: 90 1RF pantoprazole 40 mg tablet,delayed release (DR/EC) 40 mg PO DAILY Qty: 90 0RF Discontinued (DME) blood-glucose meter [FreeStyle Lite Meter] Kit See Rx Instructions .Route Qty: 1 0RF Rx Instructions: As directed (DME) lancets [FreeStyle Lancets] 28 gauge misc See Rx Instructions .Route Qty: 100 3RF Rx Instructions: As directed (DME) FreeStyle Lite Strips Strip See Rx Instructions .Route Qty: 100 0RF Rx Instructions: daily Referrals / Follow Up: Thania Matthews MD [Primary Care Provider] - Disposition Disposition (needs filled in before D/C Order can be placed): Home, Self Care
[2024-06-27 07:49] VITALS: BP 101/68; PULSE 71; RESP 16; TEMP 36.2; O2SAT 98
[2024-06-27] MEDS: Hydrocortisone 10 MG Tablet 20 MG PO ×2 (07:55→12:45)
[2024-06-27] MEDS: lamoTRIgine 100 MG Tablet 200 MG PO (10:09)
[2024-06-27] MEDS: Senna/Docusate Sodium 1 Tablet PO (10:09)
[2024-06-27] MEDS: ARIPiprazole 5 MG Tablet 15 MG PO (10:09)
[2024-06-27] MEDS: Pantoprazole Sodium 40 MG Tablet PO (10:10)
[2024-06-27] MEDS: Psyllium 1 PACKET PO (10:10)
--- NOTE | 2024-06-27 11:54 | CASEMGMT ---
Social Work Assessment Labor and Delivery Unit Patient Address:[address] [place] [address] Phone number: [phone] Date of Referral: 06/26/24 Time of Referral:? [phone] Referred By: Dr. Banks Date of Intervention: ?06/27/24? Time of Intervention:?1100 Reason for Referral:? hx anxiety, bipolar Sw completed chart review and acknowledges social work consult due to maternal mental health history. Sw presented to bedside and introduced self to mother of baby (MOB- Tracy) and father of baby (FOB- Dilip). Sw explained reason for sw involvement and completed psychosocial assessment. History obtained from: medical records, MOB and FOB Household composition: Currently residing in the family home is MOB, FOB, MOB's 16 year old son- Marc, MOB/ FOB's son Víctor, and baby girl when ready for discharge. parents deny any issues or concerns with their housing, reporting that it is safe and secure. Patient's parent/guardian status:? ?LINDY states that she and TRU have been together since 2011 after meeting through mutual friends. MOB denies and issues or concerns of domestic violence or intimate partner violence. Medical History: ?LINDY is 43 year old female who is 3, para 2- now 3 following labor and delivery of . LINDY received routine care during with [facility]. LINDY presented to hospital on 06/26/24 for repeat at 39 weeks gestation. Baby girl, named Hellen Ortiz, was born weighing 8lb 5oz with apgars of 8 and 9 at one and five minutes of life, respectfully. LINDY states that she is bottle feeding and baby will be followed by Dr. Gregorio for pediatrics. Educational Status:? LINDY is an [employer] and FOB graduated from high school- no advanced degree. Parents deny any issues with reading, learning or comprehension. Financial Status: Both parents are gainfully employed outside of the home. 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 FOB works as a dray truck driver. Supplies:?? MOB states that they have obtained all necessary baby supplies, including: car seat, safe sleep space, clothes, diapers and wipes. Childcare/Caregiver(s):? MOB will be the primary caregiver to baby, along with FOB when he is not working. Transportation:??Both parents have their drivers license and reliable means of transportation. No barriers at this time. Programs/Agencies Involved: LINDY states that they are not connected to any community agencies that assist them financially at this time. LINDY states that she has not applied for WIC, but may consider it now that baby has been born. ??? Children Services/Legal Issues:??? No history of children services involvement, no issues or concerns warranting referral to be made at this time. Behavioral Health Issues: ??Mental Health History:??TRU denies mental health history. LINDY states that she has anxiety and was also diagnosed with BiPolar when she was in her 20s. LINDY states that she sees a psychiatrist at [facility], she is prescribed abilify and lamictal. MOB states that the medications have been substantially beneficial and have helped her manage her mental health symptoms. MOB states that she struggles mostly with anxiety. LINDY states that at baseline she is anxious about something, but when it gets worse she will have panic attacks. LINDY states that she has learned how to manage her symptoms and is thankful for medications that help her feel like herself. ? Substance Use History:?LINDY denies substance use prior to or during . ? Family History:?MOB denies family history of mental health diagnoses and addiction disorders. ? Drug Screens: ??No drug screens observed in chart review. Family/Social Stressors:? Parents deny any issues or concerns at this time. Support Systems: LINDY states that TRU and her mom are her biggest supports. Depression/Shaken Baby/Safe Sleeping:? Sw educated MOB on signs and symptoms of baby blues and mood and anxiety disorders. Sw also educated MOB on risk factor for psychosis due to mental health history positive for BiPolar. LINDY stated that she was anxious towards the end of , because she was nervous anticipating her scheduled . MOB denies any thoughts of self harm or depressed thoughts. MOB completed Belva Depression Scale, her score was a 3. Sw provided support and education. TRU states that if MOB were to struggle during this period he would be able to recognize what that looks like and would know how to help and support her. Sw educated parents on shaken baby prevention and ABCs of safe sleep. Parents express understanding. ASSESSMENT:? MOB and baby are admitted following labor and delivery. MOB with mental health history positive for anxiety and BiPolar. MOB and FOB have been together for 12 years and state that they are each other's biggest supports. LINDY states that although she has been diagnosed with anxiety and BiPolar she feels maintained with the current medications that she is prescribed by her psychiatrist. LINDY has obtained everything that she needs for baby and has natural supports in place. FOB observed to provide hands on and loving care to . Parents both engaged and interactive in completion of psychosocial assessment. PLAN:? MOB and baby to be discharged when medically ready. ?No other services requested or indicated. Tomasz Overton, CRITICAL CARE PHYSICIAN ASSISTANT, MARKETING DATABASE COORDINATOR
[2024-06-27 11:58] VITALS: BP 113/64; PULSE 73; RESP 17; TEMP 36.1; O2SAT 99
[2024-06-27] MEDS: SimETHICONE 80 MG Chewable Tablet PO (14:33)
== END 2024-06-27 14:40 | disposition home or self-care (01) | DRG 787 ==
PROVIDERS: Admitting Provider Obstetrics & Gynecology; PCP Internal Medicine; Visit Provider Obstetrics & Gynecology
PROC: 10D00Z1 Extraction of Products of Conception, Low, Open Approach (ICD-10-PCS; CPT 59514; principal; 2024-06-26 11:45)
DX: O34.211 Maternal care for low transverse scar from previous cesarean delivery (principal); E27.1 Primary adrenocortical insufficiency; E31.0 Autoimmune polyglandular failure; E06.3 Autoimmune thyroiditis; F17.210 Nicotine dependence, cigarettes, uncomplicated; O32.1XX0 Maternal care for breech presentation, not applicable or unspecified; O26.03 Excessive weight gain in pregnancy, third trimester; O99.284 Endocrine, nutritional and metabolic diseases complicating childbirth; O99.334 Smoking (tobacco) complicating childbirth; O69.2XX0 Labor and delivery complicated by other cord entanglement, with compression, not applicable or unspecified; O69.81X0 Labor and delivery complicated by cord around neck, without compression, not applicable or unspecified; Z37.0 Single live birth; Z3A.39 39 weeks gestation of pregnancy; Z79.52 Long term (current) use of systemic steroids; Z79.890 Hormone replacement therapy; Z79.899 Other long term (current) drug therapy
CPT/HCPCS: 59025; 59050; 85025; 85027; 86780; 86850; 86900; 86901; 88307; 99221; J7120; A4216; G0378; J2405

== ENCOUNTER → 2024-08-28 | Outpatient (CLI) | payer OTHER, SELFPAY ==
[2024-08-28 15:40] LABS: T4 Free Direct 0.79 ng/dL (0.76-1.46)
== END | disposition home or self-care (01) ==
LOC: BIMLAB 13:43
PROVIDERS: Internal Medicine Endocrinology, Diabetes & Metabolism; PCP Internal Medicine; Referring Provider Internal Medicine; Visit Provider Internal Medicine
DX: E03.8 Other specified hypothyroidism (principal); E06.3 Autoimmune thyroiditis
CPT/HCPCS: 36415; 84439; 84443

== ENCOUNTER → 2024-09-23 | Outpatient (CLI) | payer OTHER, SELFPAY | END | disposition home or self-care (01) | LOC: PSN 12:36 | PROVIDERS: PCP Internal Medicine; Referring Provider Internal Medicine; Visit Provider Internal Medicine | DX: R05.3 Chronic cough (principal) | CPT/HCPCS: 94060; 94726; 94729 ==

== ENCOUNTER → 2024-10-15 | Outpatient (CLI) | payer OTHER, SELFPAY | END | disposition home or self-care (01) | LOC: BIMLAB 08:36 | PROVIDERS: Internal Medicine Endocrinology, Diabetes & Metabolism; PCP Internal Medicine; Referring Provider Internal Medicine; Visit Provider Internal Medicine | DX: E03.8 Other specified hypothyroidism (principal); E06.3 Autoimmune thyroiditis | CPT/HCPCS: 36415; 84439; 84443 ==

== ENCOUNTER 2025-01-07 08:45 | Outpatient (CLI) | payer OTHER, SELFPAY ==
[2025-01-07 19:28] LABS: ALB/GLOB Ratio 1.6 RATIO (0.9-2.4); AST(SGOT) 22 U/L (<=31); Alanine Aminotransfer ALT/SGPT 13 U/L (<=34); Albumin, Serum 4.1 g/dL (3.5-5.0); Alkaline Phosphatase 65 U/L (35-104); Anion Gap 10 (5-15); BUN 12 mg/dL (4-19); BUN/Creat Ratio 14.3 RATIO (10-20); Calcium 9.6 mg/dL (7.6-11.0); Carbon Dioxide 22.7 mmol/L (22.0-29.0); Chloride 101 mmol/L (96-108); Creatinine, Serum 0.9 mg/dL (0.6-1.0); EST Glomerular Filtration Rate 87 (>60); Globulin 2.6 g/dL (2.2-4.2); Glucose 88 mg/dL (70-99); Potassium 4.9 mmol/L (3.3-5.1); Protein, Total 6.7 g/dL (5.9-8.4); Sodium Level 134 mmol/L (133-145)
== END 2025-01-07 23:59 | disposition home or self-care (01) ==
LOC: BIMLAB 08:45
PROVIDERS: PCP Internal Medicine; Referring Provider Internal Medicine Endocrinology, Diabetes & Metabolism; Visit Provider Internal Medicine Endocrinology, Diabetes & Metabolism
DX: E31.0 Autoimmune polyglandular failure (principal); E27.1 Primary adrenocortical insufficiency; E03.8 Other specified hypothyroidism; E06.3 Autoimmune thyroiditis
CPT/HCPCS: 36415; 80053; 84439; 84443

== ENCOUNTER → 2025-04-21 | Outpatient (CLI) | payer OTHER, SELFPAY ==
[2025-04-21 15:22] LABS: Absolute Lymphocyte Count 2.12 X10^3/uL (0.83-4.51); Absolute Neutrophil Count 1.3 X10^3/uL (2.0-7.7); Basophil# 0.06 X10^3/uL; Basophil% 1.5 % (0-1); Hematocrit 45.1 % (37-47); Hemoglobin 15.6 g/dL (12.0-15.0); Lymphocyte # 2.12 X10^3/ul (0.83-4.51); Lymphocyte % 52.1 % (19-41); Mean Corp Hgb Conc 34.6 g/dL (32-36); Mean Corpuscular Volume 92.6 fL (81-99); Mean Platelet Vol. 9.7 fl (6.2-12.0); Monocyte# 0.55 X10^3/uL; Monocyte% 13.5 % (0-10); NRBC Flagged by Analyzer 0 % (0-5); Neutrophil # 1.34 X10^3/uL (2.7-7.7); Neutrophil % 32.9 % (47-70); Platelet Count 295 K/mm3 (150-450); RBC Distribution Width CV 13.1 % (11.6-14.6); RBC Distribution Width SD 44.6 fl (35.1-43.9); Red Blood Count 4.87 M/mm3 (4.2-5.4); White Blood Count 4.1 K/mm3 (4.4-11.0)
[2025-04-21 16:01] LABS: ALB/GLOB Ratio 1.7 RATIO (0.9-2.4); AST(SGOT) 14 U/L (<=31); Alanine Aminotransfer ALT/SGPT 6 U/L (<=34); Albumin, Serum 4.3 g/dL (3.5-5.0); Alkaline Phosphatase 64 U/L (35-104); Anion Gap 10 (5-15); BUN 15 mg/dL (4-19); BUN/Creat Ratio 16.7 RATIO (10-20); Calcium,Total 9.3 mg/dL (7.6-11.0); Carbon Dioxide 23.7 mmol/L (21.0-32.0); Chloride 102 mmol/L (98-108); Creatinine, Serum 0.92 mg/dL (0.70-1.20); EST Glomerular Filtration Rate 79 (>60); Globulin 2.5 g/dL (2.2-4.2); Glucose 94 mg/dL (70-99); Protein, Total 6.8 g/dL (5.9-8.4); Sodium Level 136 mmol/L (133-145); Total Bilirubin 0.33 mg/dL (0.00-1.30)
[2025-04-21 16:53] LABS: Ferritin 25 ng/mL (22-378); Vitamin B12 1231 pg/mL (180-914); Vitamin D,25 Hydroxy 49.5 ng/mL (30-100)
== END | disposition home or self-care (01) ==
LOC: BIMLAB 14:07
PROVIDERS: PCP Internal Medicine; Referring Provider Internal Medicine Endocrinology, Diabetes & Metabolism; Visit Provider Internal Medicine Endocrinology, Diabetes & Metabolism
DX: E27.1 Primary adrenocortical insufficiency (principal); E31.0 Autoimmune polyglandular failure; E03.8 Other specified hypothyroidism; E06.3 Autoimmune thyroiditis; R73.09 Other abnormal glucose
CPT/HCPCS: 36415; 80053; 82306; 82607; 82728; 83036; 84439; 84443; 85025

== ENCOUNTER → 2025-05-22 | Outpatient (CLI) | payer OTHER, SELFPAY ==
[2025-05-22 15:32] LABS: Hematocrit 46.2 % (37-47); Hemoglobin 15.6 g/dL (12.0-15.0); Immature Granulocytes Count 0.000 X10^3/uL (0.0-0.0); Mean Corp Hgb Conc 33.8 g/dL (32-36); Mean Corpuscular Volume 93.7 fL (81-99); Mean Platelet Vol. 10.1 fl (6.2-12.0); NRBC Flagged by Analyzer 0 % (0-5); Platelet Count 269 K/mm3 (150-450); RBC Distribution Width CV 13.3 % (11.6-14.6); RBC Distribution Width SD 45.4 fl (35.1-43.9); Red Blood Count 4.93 M/mm3 (4.2-5.4); White Blood Count 4.5 K/mm3 (4.4-11.0)
== END | disposition home or self-care (01) ==
LOC: BIMLAB 13:02
PROVIDERS: PCP Internal Medicine; Visit Provider Internal Medicine
DX: J45.909 Unspecified asthma, uncomplicated (principal)
CPT/HCPCS: 36415; 85025